=== PATIENT | male | born 1970 | race African-American/Black ===

== ENCOUNTER 2016-08-28 01:57 | Emergency (ER) | payer OTHER ==
--- NOTE | 2016-08-28 05:14 | ER Document Report ---
HPI - HPI Patient complains to provider of: Headache and nausea Onset: Yesterday - Midnight Quality of pain: Achy Pain Level: 4 Context: 45-year-old male states he had a generalized headache and nausea that started at midnight. Similar to other headaches that he has had in the past. No pain at this time. No dizziness or paresthesia. Associated Symptoms: None Exacerbated by: Denies Relieved by: Denies - ROS ROS below otherwise negative: Yes Systems Reviewed and Negative: Yes All other systems reviewed and negative - DERM Skin Color: Normal Past Medical History - General Information source: Patient - Social History Smoking Status: Current Every Day Smoker Frequency of alcohol use: None Drug Abuse: None Lives with: Family Family History: Reviewed & Not Pertinent - Medical History Medical History: Negative Renal/ Medical History: Denies: Hx Peritoneal Dialysis Surgical Hx: Negative Vertical Provider Document - CONSTITUTIONAL Agree With Documented VS: Yes Exam Limitations: No Limitations General Appearance: No Apparent Distress - INFECTION CONTROL TRAVEL OUTSIDE OF THE [place] IN LAST 30 DAYS: No - HEENT HEENT: Atraumatic, Normal ENT Exam - NECK Neck: Supple - RESPIRATORY Respiratory: Breath Sounds Normal, No Respiratory Distress O2 Sat by Pulse Oximetry: 98 - CARDIOVASCULAR Cardiovascular: Regular Rate, Regular Rhythm - GI/ABDOMEN Gastrointestinal: Abdomen Soft, Abdomen Non-Tender, No Organomegaly - BACK Back: Normal Inspection - MUSCULOSKELETAL/EXTREMETIES Musculoskeletal/Extremeties: MAEW, FROM, Non-Tender - NEURO Level of Consciousness: Awake, Alert, Appropriate Motor/Sensory: No Motor Deficit, No Sensory Deficit - DERM Integumentary: Warm, Dry Course - Vital Signs Vital signs: Temp Pulse Resp BP Pulse Ox 98.6 F 90 18 134/83 H 98 08/28/16 02:06 08/28/16 02:06 08/28/16 02:06 08/28/16 02:06 08/28/16 02:06 Discharge - Discharge Clinical Impression: Nausea Headache Qualifiers: Headache type: unspecified Headache chronicity pattern: unspecified pattern Intractability: not intractable Qualified Code(s): R51 - Headache Condition: Good Disposition: HOME, SELF-CARE Instructions: Headache ([facility]), Nausea or Vomiting, Nonspecific ([facility]) Additional Instructions: see neurologist if recurs to er if worsening symptoms Referrals: YUNIOR CEDILLO MD [ACTIVE STAFF] - Follow up as needed
[2016-08-28 05:48] VITALS: BP 154/78
== END 2016-08-28 05:40 | disposition home or self-care (01) ==
LOC: ER 01:57
DX: R51 Headache (principal); R11.0 Nausea; F17.200 Nicotine dependence, unspecified, uncomplicated
CPT/HCPCS: 99283

== ENCOUNTER 2017-01-12 03:00 | Emergency (ER) | payer MEDICAID, OTHER ==
[2017-01-12 03:26] VITALS: BP 140/84
--- NOTE | 2017-01-12 03:29 | ER Document Report ---
ED General - General Stated Complaint: PSYCH EVAL Time Seen by Provider: 01/12/17 03:26 Mode of Arrival: Ambulatory Information source: Patient Notes: This is a 46-year-old man who reports having a history of schizophrenia who is been off his psychiatric meds because of incarceration. Patient initially presented wanting to get back on his medicines. He does report that he has an appointment in the morning at [facility] services. He would like a referral to primary care physician. The patient denies any hallucinations or delusions. He denies any suicidal ideations or homicidal ideations. TRAVEL OUTSIDE OF THE [place] IN LAST 30 DAYS: No - HPI Onset: Last week Onset/Duration: Gradual Quality of pain: No pain Severity: None Pain Level: Denies Associated symptoms: denies: Chest pain, Fever, Shortness of breath Exacerbated by: Denies Relieved by: Denies Similar symptoms previously: Yes Recently seen / treated by doctor: No - Related Data Allergies/Adverse Reactions: No Known Allergies Allergy (Unverified 01/12/17 03:09) Home Medications: Current Home Medications No Home Medications 01/12/17 [History] Past Medical History - General Information source: Patient - Social History Smoking Status: Never Smoker Cigarette use (# per day): No Chew tobacco use (# tins/day): No Frequency of alcohol use: None Drug Abuse: None Lives with: Alone Family History: Reviewed & Not Pertinent Patient has suicidal ideation: No Patient has homicidal ideation: No - Past Medical History Cardiac Medical History: Reports: None Pulmonary Medical History: Reports: None EENT Medical History: Reports: None Neurological Medical History: Reports: None Endocrine Medical History: Reports: None Renal/ Medical History: Reports: None. Denies: Hx Peritoneal Dialysis Malignancy Medical History: Reports None GI Medical History: Reports: None Musculoskeltal Medical History: Reports None Skin Medical History: Reports None Psychiatric Medical History: Reports: Hx Schizophrenia Traumatic Medical History: Reports: None Infectious Medical History: Reports: None Surgical Hx: Negative Review of Systems - Review of Systems Constitutional: denies: Chills, Fever EENT: No symptoms reported Cardiovascular: No symptoms reported Respiratory: No symptoms reported Gastrointestinal: No symptoms reported Genitourinary: No symptoms reported Male Genitourinary: No symptoms reported Musculoskeletal: No symptoms reported Skin: No symptoms reported Hematologic/Lymphatic: No symptoms reported Neurological/Psychological: See HPI Physical Exam - Vital signs Vitals: Pulse Resp BP Pulse Ox 78 18 140/84 H 98 01/12/17 03:11 01/12/17 03:11 01/12/17 03:11 01/12/17 03:11 Notes: Physical exam: GENERAL: 46-year-old man, no acute distress. HEAD: Atraumatic, normocephalic. EYES: Pupils equal round and reactive to light, extraocular movements intact, sclera anicteric, conjunctiva are normal. ENT: TMs normal, nares patent, oropharynx clear without exudates. Moist mucous membranes. NECK: Normal range of motion, supple without obvious mass or JVD. LUNGS: Breath sounds clear to auscultation bilaterally and equal. No wheezes rales or rhonchi. HEART: Regular rate and rhythm without murmurs, rubs or gallops. ABDOMEN: Soft, normoactive bowel sounds. No tenderness to palpation. No guarding, no rebound. No masses appreciated. EXTREMITIES: Normal range of motion, no pitting or edema. No clubbing or cyanosis. NEUROLOGICAL: Cranial nerves II through XII grossly intact. Normal speech, moving all extremities. PSYCH: Denies any hallucinations, denies suicidal ideations, denies homicidal ideations. He is alert and conversant. The patient does appear somewhat emotionally labile, but is non-threatening during my interaction. SKIN: Warm, Dry, normal turgor, no rashes or lesions noted. Course - Vital Signs Vital signs: Temp Pulse Resp BP Pulse Ox 78 18 140/84 H 98 01/12/17 03:11 01/12/17 03:11 01/12/17 03:11 01/12/17 03:11 Discharge - Discharge Clinical Impression: Schizophrenia Condition: Stable Disposition: HOME, SELF-CARE Additional Instructions: Recommendations: 1: Follow-up with the primary care physician: Primary Care Doctor's affiliated with [facility], [facility]: If you do not have a primary care doctor or you are unable to get an apointment during that time, you can try one of the doctor's below. These are internal medicine doctor's that have admitting priveledges to the hospital ( they will see you both in the office as well as in this hospital if you are ever hospitalized here). Dr. Mes[facility] [address], [place] [address] [phone] Dr Royal Address: [address] , [place] [address] Dr Bustos Address: [address] , [place] [address] 2: Follow-up with [facility] [address], [place] Outpatient services: [phone] [place] Office: [phone] Accepts self pay He has a number for other psychiatric facilities if you cannot get into [place]: [facility] Dr Dougie Camarena [phone] [facility] [address] [place], [place] [phone] Accepts self pay [facility] [address] [facility] [place], [place] Crisis Response: [phone] Outpatient services: [phone] Accepts self pay [facility] [address] [place], [place] [phone] [facility] [address] [place], [place] [phone] [place] [facility] [address], [place] Accepts self pay
== END 2017-01-12 04:00 | disposition home or self-care (01) ==
LOC: ER 03:00
DX: F20.9 Schizophrenia, unspecified (principal)
CPT/HCPCS: 99284

== ENCOUNTER 2017-01-19 01:42 | Emergency (ER) | payer MEDICAID, OTHER ==
[2017-01-19] MEDS ORDERED: ACETAMINOPHEN 325 MG TABLET PO ONE (04:44)
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
[2017-01-19 05:40] LABS: ABSOLUTE EOSINOPHILS # (AUTO) 0.1 10^3/uL (0.0-0.6); ABSOLUTE LYMPHOCYTES (AUTO) 1.5 10^3/uL (0.5-4.7); ABSOLUTE MONOCYTES (AUTO) 0.6 10^3/uL (0.1-1.4); ABSOLUTE NEUT (AUTO) 3.8 10^3/uL (1.7-8.2); BASOPHILS % (AUTO) 0.8 % (0-2); EOSINOPHILS % (AUTO) 1.3 % (0-6); HEMATOCRIT 42.4 % (37.9-51.0); HEMOGLOBIN 14.7 g/dL (13.5-17.0); HGB HCT DIFFERENCE 1.7; LYMPHOCYTES % (AUTO) 25.4 % (13-45); MEAN CORPUSCULAR HGB CONC 34.8 g/dL (32.0-36.0); MEAN CORPUSCULAR VOLUME 92 fl (80-97); MONOCYTES % (AUTO) 9.2 % (3-13); RED BLOOD COUNT 4.61 10^6/uL (4.35-5.55); RED CELL DISTRIBUTION WIDTH 14.6 % (11.5-14.0); SEGMENTED NEUTROPHILS % (AUTO) 63.3 % (42-78)
[2017-01-19 05:46] LABS: APPEARANCE,URINE CLEAR; BILIRUBIN,URINE NEGATIVE (NEGATIVE); GLUCOSE, URINE NEGATIVE (NEGATIVE); KETONES,URINE NEGATIVE (NEGATIVE); LEUKOCYTE ESTERASE,URINE NEGATIVE (NEGATIVE); NITRITE,URINE NEGATIVE (NEGATIVE); PROTEIN,URINE NEGATIVE (NEGATIVE); URINE SPECIFIC GRAVITY 1.002; UROBILINOGEN,URINE NEGATIVE mg/dL (<2.0)
[2017-01-19 05:55] LABS: ALANINE AMINOTRANSFERASE 28 U/L (21-72); ALKALINE PHOSPHATASE 67 U/L (38-126); ANION GAP 10 (5-19); ASPARTATE AMINO TRANSFERASE 19 U/L (17-59); BILIRUBIN,DIRECT 0.4 mg/dL (0.0-0.4); BILIRUBIN,TOTAL 0.9 mg/dL (0.2-1.3); BLOOD UREA NITROGEN 7 mg/dL (7-20); CALCIUM 9.4 mg/dL (8.4-10.2); CARBON DIOXIDE 28 mmol/L (22-30); CHLORIDE 103 mmol/L (98-107); CREATININE RESULT 0.74 mg/dL (0.52-1.25); GLUCOSE 80 mg/dL (75-110); POTASSIUM 3.9 mmol/L (3.6-5.0); SODIUM 141.4 mmol/L (137-145); TOTAL PROTEIN 7.4 g/dL (6.3-8.2)
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
[2017-01-19 05:58] LABS: ALCOHOL < 10 mg/dL (NONE DETECTED)
[2017-01-19 06:00] LABS: URINE BARBITURATES SCREEN NEGATIVE; URINE METHADONE SCREEN NEGATIVE; URINE OPIATES LOW NEGATIVE; URINE PHENCYCLIDINE SCREEN NEGATIVE
--- NOTE | 2017-01-19 09:21 | EKG REPORT ---
SEVERITY:- OTHERWISE NORMAL ECG - SINUS RHYTHM BORDERLINE RIGHT AXIS DEVIATION : Confirmed by: Salima Maldonado MD 19-Jan-2017 09:20:30
--- NOTE | 2017-01-19 09:21 | ER Document Report ---
Doctor's Note Notes: 01/19/17 09:19 46-year-old male who presents secondary to some mild non-radiating headaches without fevers or neck stiffness with some nasal congestion and a sore throat as well as pain to his left thumb. Patient also stated that he has been out of his psychiatric medications recently. He denies any auditory or visual hallucinations. He denies any suicidal homicidal ideations. Labs showing positive for cocaine. Vital signs stable. Patient's mood is calm and congruent. Patient has no complaints at this moment. Awaiting psychiatric evaluation. X-ray shows no acute abnormalities of the thumb. Anticipate psychiatric evaluation, possibly medication adjustment/refills, outpatient services provided, and discharge.
[2017-01-19] MEDS ORDERED: OLANZAPINE 5 MG TAB.RAPDIS PO ONE (11:33)
[2017-01-19] MEDS ORDERED: BENZTROPINE MESYLATE 1 MG TABLET PO ONE (11:33)
--- NOTE | 2017-01-19 11:40 | ER Document Report ---
ED Psych Disorder / Suicide - General Information source: Patient, Relative, [facility] Records TRAVEL OUTSIDE OF THE [place] IN LAST 30 DAYS: No - HPI Patient complains to provider of: Other Onset: Other Onset was: Gradual Suicide Risk Factors: Lack of social support, Male, Schizophrenia, Substance abuse, Other - wants to harm others, denies anyone specific, just states he is angry at "the system" Situational problems related to: Legal problems - custodial x 7 years, Parent - states mother is in senior care, Work - cannot find work, but also states he receives disability for schizophrenia, Other - "I need my food stamps" Normal mood: No Associated symptoms: Anxious, Irritable, Labile Similar symptoms previously: Yes Recently seen / treated by doctor: Yes - [facility] <GAMALIEL SALINAS - Last Filed: 01/19/17 16:51> <GURWINDER AVINA - Last Filed: 01/19/17 17:17> - General Chief Complaint: Headache Stated Complaint: HEADACHE Time Seen by Provider: 01/19/17 04:11 - HPI Notes: Patient is a 46-year-old male who presented to [facility] ER overnight via his scooter with a myriad of complaints to include headache, nausea, needing referral for primary care, needing food stamps and also complaining of not having his psychiatric medications. Patient this morning states he was at and after [employer] where he smoked and drank. Patient reports he is diagnosed with schizophrenia for which he reports he receives disability. Patient states his disability was recently increased. Patient reports he feels like he is getting the run around and is constantly being asked to provide items for food stamps (just one example ) which he states he is eligible. Patient reports he was previously on medications while in custodial 7 years. He states when he got out of custodial he has tried to follow-up with [facility] services but they want him to attend all these different groups. Patient states the groups are pointless and do not help. Patient states he does not want to talk he needs his meds. Patient later acknowledges he did see the doctor who prescribed the medications, but patient reports he cannot afford to pay for them. Patient continues to discuss that he needs his food stamps, and that he is here because he promised his mother he would. Patient states he has a small child at home and "no one cares about the black man." Patient reports he feels as though he gets the runaround from the system and is constantly having to provide paperwork and documentation in meets all of the request and still is not receiving help. Patient denies feeling suicidal. Patient reports there are individuals he wants to harm but will not disclose them to this clinician because he knows I will have to report this. Patient reports he was in custodial for "powder cocaine." Patient states he chooses to medicate himself with occasionally alcohol and marijuana. Note patient was positive for cocaine only. GirlfriendMary states: she is not aware of patient threatening himself or anyone else. She states she does not think he would harm anyone and has never acted in a way that would suggest this. She states she will check in with the patient later today, and the following days. Person to contact, Jen Nogueira : has been temporarily disconnected. Patient is alert and oriented. Mood is irritable and labile with congruent affect. Patient denies suicidal ideations. Patient endorses wanting to harm others. Patient refuses to report who these individuals are. Patient denies auditory visual hallucinations; delusions not noted. Thought processes were disorganized. Conversational speech was labile for rate, tone, and prosody. Intellectual abilities were estimated to be under the influence. Attention and focus are poor. Insight, judgment, impulse control are poor. 298.9 (F29) Unspecified Schizophrenia or Other Psychotic Disorder, per history Unspecified Cocaine Use Disorder @1638: Conducted reevaluation of patient. Patient did receive a dose of Zyprexa while here in the department. Patient is now alert and oriented. Patient is calm. Patient denies wanting to harm anybody. Patient states he just gets frustrated with his situation and feels he is doing his best to get on his feet. Patient states he will follow-up with [employer] services tomorrow morning. Patient continues to deny wanting to harm anybody. Patient states right now he feels calmer and would like to go home. Patient is psychiatrically cleared for discharge. Patient is recommended to follow-up with [facility] services Friday morning and request a medication management appointment. Patient is strongly encouraged to continue to attend the group meetings. Patient reports he is agreeable to this and understands that they are required per that provider, to be able to receive medication management. Patient provided a list of additional resources to include integrated family services who are not known to require group sessions in order to receive medication management. I consulted with Dr. Camarena in regards to the care and management of this patient. (GAMALIEL SALINAS) - Related Data Allergies/Adverse Reactions: No Known Allergies Allergy (Verified 01/19/17 02:01) Past Medical History - General Information source: Patient, [facility] Records - Social History Smoking Status: Current Every Day Smoker Frequency of alcohol use: None Drug Abuse: Marijuana Family History: Reviewed & Not Pertinent Patient has suicidal ideation: No Patient has homicidal ideation: Yes - Passive this am; afternoon patient denies Renal/ Medical History: Denies: Hx Peritoneal Dialysis Psychiatric Medical History: Reports: Hx Schizophrenia <GAMALIEL SALINAS - Last Filed: 01/19/17 16:51> - Vital signs Vitals: Temp Pulse Resp BP Pulse Ox 98.8 F 86 17 137/91 H 97 01/19/17 02:02 01/19/17 02:02 01/19/17 02:02 01/19/17 02:02 01/19/17 02:02 Course - Laboratory Result Diagrams: 01/19/17 05:06 01/19/17 05:06 <GAMALIEL SALINAS - Last Filed: 01/19/17 16:51> - Laboratory Result Diagrams: 01/19/17 05:06 01/19/17 05:06 <GURWINDER AVINA - Last Filed: 01/19/17 17:17> - Vital Signs Vital signs: Temp Pulse Resp BP Pulse Ox 97.9 F 77 17 130/77 H 99 01/19/17 11:01 01/19/17 11:01 01/19/17 07:05 01/19/17 11:01 01/19/17 11:01 - Laboratory Laboratory results interpreted by me: 01/19/17 01/19/17 05:06 05:06 RDW 14.6 H Salicylates < 1.0 L Acetaminophen < 10 L Discharge <GAMALIEL SALINAS - Last Filed: 01/19/17 16:51> <GURWINDER AVINA - Last Filed: 01/19/17 17:17> - Discharge Clinical Impression: Psychiatric complaint, Chronic pain of left knee URI (upper respiratory infection) Qualifiers: URI type: unspecified URI Qualified Code(s): J06.9 - Acute upper respiratory infection, unspecified Thumb contusion Qualifiers: Encounter type: initial encounter Damage to nail status: without damage Laterality: left Qualified Code(s): S60.012A - Contusion of left thumb without damage to nail, initial encounter Condition: Stable Disposition: HOME, SELF-CARE Additional Instructions: Cocaine Abuse Cocaine causes many dangerous medical problems. Problems can occur even with "usual" amounts. Cocaine affects judgement, creating a sense of invulnerability. Cocaine users often make bad decisions that seem "great" at the time. Most cocaine users eventually will be hurt by bad job performance, damaged personal relations, crime, and unsafe sexual practices. Toxic effects of cocaine can include seizures, hallucinations, delusions, high blood pressure, heart damage, or sudden . There's always the risk of a "bad batch." But heart attacks, brain hemorrhages, or cardiac arrest can occur unpredictably even with "normal" use. Injection of cocaine is risky for abscesses, endocarditis (heart infection) , pneumonia, and AIDS. Withdrawal from cocaine often causes anxiety and drug cravings. Some users become paranoid and psychotic. Many treatment programs are available, but you must make the decision to quit. Medication can be prescribed to control the symptoms of cocaine toxicity (beta blockers or benzodiazepines). Withdrawal symptoms may require tranquilizers. Schizophrenia Schizophrenia is a chemical disorder that affects how the brain functions. The exact cause is unknown, but it tends to run in families. It is NOT caused by emotional trauma. Schizophrenia causes disordered thinking, including unusual beliefs and inability to "process" happenings around the patient. Patients with schizophrenia benefit greatly from medicine. These medicines are called antipsychotics. Never stop the medicine without the doctor 's approval. Counselling may help the patient deal with his disease. Schizophrenics require a very ordered environment. Stresses and sudden changes may bring out symptoms. Drugs and alcohol abuse may become problems. Contact the counsellor or crisis line if there are thoughts of suicide or of harming others, or if you become aware of unusual thoughts or beliefs Please follow-up with [facility] on your schedule appointment January 27. Please stop using drugs. Drugs are bad for your health, impair your insight and judgment, and increased irritability. You have been provided a list of resources to assist you to include mobile crisis. I have a Risperdal prescription for the next 7 days until you are able to see a counselor appointment. Please make sure that you take your medications appropriately. Please come back immediately with any return of auditory hallucinations, any thoughts of injuring yourself or others, or any other acute problems. Prescriptions: Benztropine Mesylate [Cogentin 1 mg Tablet] 0.5 mg PO DAILY #8 tablet Risperidone [Risperdal 1 mg Tablet] 1 mg PO DAILY #8 tablet Referrals: [facility] [Provider Group] - 01/20/17
[2017-01-19 17:46] VITALS: BP 124/77
== END 2017-01-19 17:46 | disposition home or self-care (01) ==
LOC: ER 01:42
DX: F20.9 Schizophrenia, unspecified (principal); T43.596A Underdosing of other antipsychotics and neuroleptics, initial encounter; T43.226A Underdosing of selective serotonin reuptake inhibitors, initial encounter; Z91.14 Patient's other noncompliance with medication regimen; Z91.120 Patient's intentional underdosing of medication regimen due to financial hardship; S66.012A Strain of long flexor muscle, fascia and tendon of left thumb at wrist and hand level, initial encounter; W23.0XXA Caught, crushed, jammed, or pinched between moving objects, initial encounter; J02.9 Acute pharyngitis, unspecified; G89.29 Other chronic pain; M25.562 Pain in left knee; S81.002S Unspecified open wound, left knee, sequela; W34.00XS Accidental discharge from unspecified firearms or gun, sequela; H61.20 Impacted cerumen, unspecified ear; R51 Headache; R11.2 Nausea with vomiting, unspecified; R09.81 Nasal congestion; F14.90 Cocaine use, unspecified, uncomplicated; F17.200 Nicotine dependence, unspecified, uncomplicated
CPT/HCPCS: 93005; 99284; 36415; 80307 ×4; 85025; 80053; 81001; 73140; 93010; J3490 ×3

== ENCOUNTER 2017-01-27 23:21 | Emergency (ER) | payer MEDICAID, OTHER ==
--- NOTE | 2017-01-28 01:17 | ER Document Report ---
HPI - HPI Patient complains to provider of: cough, sinus pain, congestion Pain Level: 4 Context: Patient is a 46-year-old male comes emergency department for chief complaint of sinus congestion, cough, and sore throat. He denies fever. He states that his sinus congestion is getting worse and he is getting intermittent headaches. He denies vomiting, shortness of breath, he states he does not smoke. He denies any other symptoms. He denies any other complaints. Past medical history of schizophrenia, he states he is taking his medications. - CARDIOVASCULAR Cardiovascular: DENIES: Chest pain - DERM Skin Color: Normal Past Medical History - General Information source: Patient - Social History Smoking Status: Never Smoker Drug Abuse: None Lives with: Alone Family History: Reviewed & Not Pertinent Patient has suicidal ideation: No Patient has homicidal ideation: No Renal/ Medical History: Denies: Hx Peritoneal Dialysis Psychiatric Medical History: Reports: Hx Schizophrenia Surgical Hx: Negative - Immunizations Immunizations up to date: Yes Hx Diphtheria, Pertussis, Tetanus Vaccination: Yes Vertical Provider Document - CONSTITUTIONAL General Appearance: WD/WN, No Apparent Distress - INFECTION CONTROL TRAVEL OUTSIDE OF THE [place] IN LAST 30 DAYS: No - HEENT HEENT: Atraumatic, Normocephalic. negative: Normal ENT Exam - Patient with sinus congestion, mild pharyngeal erythema, complaints of pain with palpation over both maxillary sinuses, nontender frontal sinuses, normal neck, normal ENT exam otherwise. - NECK Neck: Normal Inspection - RESPIRATORY Respiratory: Breath Sounds Normal, No Respiratory Distress, Other - Very mild occasional cough, clear lungs, no wheezing, no rales, no rhonchi O2 Sat by Pulse Oximetry: 100 - CARDIOVASCULAR Cardiovascular: Regular Rate, Regular Rhythm - GI/ABDOMEN Gastrointestinal: Abdomen Soft, Abdomen Non-Tender - MUSCULOSKELETAL/EXTREMETIES Musculoskeletal/Extremeties: MAEW, FROM, Non-Tender Course - Re-evaluation Re-evalutation: Patient with evidence of viral upper respiratory infection and sinusitis. Low suspicion of pneumonia. No fever. No respiratory symptoms on exam. Patient denying any psychiatric concerns, states he is compliant with his medications and he just wants to be treated for the illness. Discussed follow-up, discussed return precautions including difficulty breathing, patient states understanding and agreement. - Vital Signs Vital signs: Temp Pulse Resp BP Pulse Ox 98.3 F 79 20 137/83 H 100 01/27/17 23:29 01/27/17 23:29 01/27/17 23:29 01/27/17 23:29 01/27/17 23:29 Discharge - Discharge Clinical Impression: Sinus pain, Congestion of paranasal sinus, Sore throat, Cough Condition: Stable Disposition: HOME, SELF-CARE Additional Instructions: Your examination is consistent with a viral upper respiratory infection and also developing sinus infection. Recommendation is to take the Flonase nasal spray, use the Tessalon if needed for cough, and take the antibiotic for your sinus infection as prescribed. Rest, drink plenty of fluids. Follow-up with primary care. Return to emergency department if you worsen including developing fever, difficulty breathing, or any other concerning symptoms. Prescriptions: Benzonatate [Tessalon Perles 100 mg Capsule] 100 mg PO Q8HP PRN #20 capsule PRN Reason: Amoxicillin Trihydrate [Amoxil 875 mg Tablet] 1 tab PO BID #20 tablet Fluticasone Propionate [Flonase Nasal [place] 50 Mcg/[place] 16 gm] 2 sprays NASL Q12 #1 inhaler
[2017-01-28 01:36] VITALS: BP 137/84
== END 2017-01-28 01:36 | disposition home or self-care (01) ==
LOC: ER 23:21
DX: J02.9 Acute pharyngitis, unspecified (principal); J32.9 Chronic sinusitis, unspecified; B97.89 Other viral agents as the cause of diseases classified elsewhere; R09.81 Nasal congestion; R05 Cough; R51 Headache; F20.9 Schizophrenia, unspecified; Z79.899 Other long term (current) drug therapy
CPT/HCPCS: 99283

== ENCOUNTER 2017-06-08 20:10 | Emergency (ER) | payer MEDICAID, OTHER ==
[2017-06-08 21:13] VITALS: BP 135/83
[2017-06-08] MEDS ORDERED: ACETAMINOPHEN 325 MG TABLET PO ONE (22:54)
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
== END 2017-06-08 23:08 | disposition home or self-care (01) ==
LOC: ER 20:10
DX: S09.90XA Unspecified injury of head, initial encounter (principal); F17.210 Nicotine dependence, cigarettes, uncomplicated; Y04.0XXA Assault by unarmed brawl or fight, initial encounter; Y92.512 Supermarket, store or market as the place of occurrence of the external cause; I10 Essential (primary) hypertension
CPT/HCPCS: 99283; J3490

== ENCOUNTER 2017-08-30 23:50 | Emergency (ER) | payer MEDICAID ==
[2017-08-31] VITALS: BP 127/113
== END 2017-08-31 02:04 | disposition left against medical advice (07) ==
LOC: ER 23:50
DX: Z53.21 Procedure and treatment not carried out due to patient leaving prior to being seen by health care provider (principal)

== ENCOUNTER 2017-09-06 05:49 | Emergency (ER) | payer MEDICAID | END 2017-09-06 06:00 | disposition left against medical advice (07) | LOC: ER 05:49 | DX: Z53.21 Procedure and treatment not carried out due to patient leaving prior to being seen by health care provider (principal) ==

== ENCOUNTER 2017-09-06 06:41 | Emergency (ER) | payer MEDICAID ==
[2017-09-06 06:57] VITALS: BP 140/80
== END 2017-09-06 07:00 | disposition left against medical advice (07) ==
LOC: ER 06:41
DX: Z53.21 Procedure and treatment not carried out due to patient leaving prior to being seen by health care provider (principal)

== ENCOUNTER 2017-09-10 15:52 | Emergency (ER) | payer MEDICAID ==
[2017-09-10] MEDS ORDERED: IBUPROFEN 800 MG TABLET PO ONE (16:39)
--- NOTE | 2017-09-10 16:39 | ER Document Report ---
ED Extremity Problem, Lower - General Chief Complaint: Foot Pain Stated Complaint: RIGHT FOOT PAIN Time Seen by Provider: 09/10/17 16:32 Mode of Arrival: Ambulatory Information source: Patient Notes: 46-year-old male presents to the ED for complaint of right foot pain after he stubbed his great toe on a cement block earlier today. He denies having any medication or treatment before coming to the emergency room. He is alert and oriented, pupils equal and react to light, speaking in full sentences, respirations regular and unlabored, and patient is able to walk with a steady gait but does complain of pain while ambulation. TRAVEL OUTSIDE OF THE [place] IN LAST 30 DAYS: No - HPI Patient complains to provider of: Injury, Pain, Swelling Location: Great Toe Occurred: This morning Where: Outdoors Onset/Duration: Persistent Quality of pain: Achy, Throbbing Severity: Severe Pain Level: 5 Context: Stubbed - Right great toe Recent injury: Yes Associated symptoms: Painful ambulation Exacerbated by: Movement, Walking Relieved by: Elevation, Ice - Related Data Allergies/Adverse Reactions: No Known Allergies Allergy (Verified 09/10/17 15:56) Past Medical History - General Information source: Patient - Social History Smoking Status: Current Every Day Smoker Cigarette use (# per day): Yes - Pack per day Chew tobacco use (# tins/day): No Smoking Education Provided: Yes - Minutes Frequency of alcohol use: Rare Drug Abuse: Marijuana Occupation: Maintenance Lives with: Alone Family History: Reviewed & Not Pertinent Patient has suicidal ideation: No Patient has homicidal ideation: No - Past Medical History Cardiac Medical History: Reports: None Pulmonary Medical History: Reports: None EENT Medical History: Reports: None Neurological Medical History: Reports: Other - Head injury Endocrine Medical History: Reports: None Renal/ Medical History: Reports: None Malignancy Medical History: Reports None GI Medical History: Reports: None Musculoskeltal Medical History: Reports None Skin Medical History: Reports None Psychiatric Medical History: Reports: Hx Schizophrenia Traumatic Medical History: Reports: None Infectious Medical History: Reports: None Surgical Hx: Negative Past Surgical History: Reports: None - Immunizations Immunizations up to date: Yes Hx Diphtheria, Pertussis, Tetanus Vaccination: Yes Review of Systems - Review of Systems Constitutional: No symptoms reported EENT: No symptoms reported Cardiovascular: No symptoms reported Respiratory: No symptoms reported Gastrointestinal: No symptoms reported Genitourinary: No symptoms reported Male Genitourinary: No symptoms reported Musculoskeletal: Other - Right great toe pain Skin: No symptoms reported Hematologic/Lymphatic: No symptoms reported Neurological/Psychological: No symptoms reported Physical Exam - Vital signs Vitals: Temp Pulse Resp BP Pulse Ox 98.1 F 88 16 130/89 H 99 09/10/17 16:07 09/10/17 16:07 09/10/17 16:07 09/10/17 16:07 09/10/17 16:07 Interpretation: Normal - General General appearance: Appears well, Alert - HEENT Head: Normocephalic, Atraumatic Eyes: Normal Pupils: PERRL - Respiratory Respiratory status: No respiratory distress Chest status: Nontender Breath sounds: Normal Chest palpation: Normal - Cardiovascular Rhythm: Regular Heart sounds: Normal auscultation Murmur: No - Abdominal Inspection: Normal Distension: No distension Bowel sounds: Normal Tenderness: Nontender Organomegaly: No organomegaly - Back Back: Normal, Nontender - Extremities General upper extremity: Normal inspection, Nontender, Normal color, Normal ROM , Normal temperature General lower extremity: Normal color, Normal ROM, Normal temperature, Normal weight bearing. No: Matthew's sign Foot: Tender, Ecchymosis - Right great toe, No evidence of FB. No: Abrasion, Deformity, Edema, Instability, Laceration, Metatarsal compress. pain, Nail injury, Navicular tenderness, Puncture wound, Tender 5th metatarsal, Unable to bear weight - He with ambulation - Neurological Neuro grossly intact: Yes Cognition: Normal Orientation: AAOx4 Sylvia Coma Scale Eye Opening: Spontaneous Sylvia Coma Scale Verbal: Oriented Sylvia Coma Scale Motor: Obeys Commands Sylvia Coma Scale Total: 15 Speech: Normal Motor strength normal: LUE, RUE, LLE, RLE Sensory: Normal - Psychological Associated symptoms: Normal affect, Normal mood - Skin Skin Temperature: Warm Skin Moisture: Dry Skin Color: Normal Course - Re-evaluation Re-evalutation: 09/10/17 18:31 X-rays discussed with patient and written report of x-ray given to patient. Patient refused any type of splint or crutches. He states he can put his shoe back on. Patient will be discharged home to follow-up with orthopedics or podiatry. - Vital Signs Vital signs: Temp Pulse Resp BP Pulse Ox 98.5 F 75 14 145/88 H 75 L 09/10/17 17:03 09/10/17 17:03 09/10/17 17:03 09/10/17 17:03 09/10/17 17:03 - Diagnostic Test Radiology reviewed: Image reviewed, Reports reviewed Discharge - Discharge Clinical Impression: Contusion of right foot including toes Qualifiers: Encounter type: initial encounter Qualified Code(s): S90.31XA - Contusion of right foot, initial encounter Condition: Stable Disposition: HOME, SELF-CARE Additional Instructions: CONTUSION: Your injury has resulted in a contusion -- a crushing of the deep tissues. No injury to important structures was detected during the physician's exam. Contusions vary in the amount of pain they cause, and in the length of time required for healing. Typically, the area will become bruised, and will remain painful to touch for two or three weeks. However, most patients are back to working and playing within a few days. After the initial period of rest and cold-packs, your symptoms (together with the doctor's recommendations) will determine how rapidly you can get back to full activity. Usually this means "do what feels okay, but don't do things that hurt." If re-examination was recommended, it's important to follow up as instructed. Call the doctor or return any time if pain increases, if swelling becomes severe, if you develop numbness or weakness in an injured extremity, or if any other alarming symptoms occur. USE OF TYLENOL (ACETAMINOPHEN): Acetaminophen may be taken for pain relief or fever control. It's much safer than aspirin, offering a wider range of "safe" dosages. It is safe during . Some brand names are Tylenol, Panadol, Datril, Anacin 3, Tempra, and Liquiprin. Acetaminophen can be repeated every four hours. The following are maximum recommended dosages: WEIGHT Dose Drops Elixir Chewable( 80mg) (LBS.) drprs=droppers tsp=teaspoon 6 40 mg 0.4 ml (1/2) 6-11 80 mg 0.8 ml (full) tsp 1 tab 12-16 120 mg 1 1/2 drprs 3/4 tsp 1 1/2 tabs 17-23 160 mg 2 drprs 1 tsp 2 tabs 24-30 240 mg 3 drprs 1 1/2 tsp 3 tabs 30-35 320 mg 2 tsp 4 tabs 36-41 360 mg 2 1/4 tsp 4 1/2 tabs 42-47 400 mg 2 1/2 tsp 5 tabs 48-53 480 mg 3 tsp 6 tabs 54-59 520 mg 3 1/4 tsp 6 1/2 tabs 60-64 560 mg 3 1/2 tsp 7 tabs 65-70 600 mg 3 3/4 tsp 7 1/2 tabs 71-76 640 mg 4 tsp 8 tabs 77-82 720 mg 4 1/2 tsp 9 tabs 83-88 800 mg 5 tsp 10 tabs >89 pounds or adults 650 mg to 900 mg Acetaminophen can be repeated every four hours. Maximum dose not to exceed 4000 mg a day. These maximum recommended dosages are slightly higher than the dosages written on the product container, but these dosages are very safe and below the toxic dosage for acetaminophen. ICE & ELEVATION: Apply ice packs frequently against the painful area. Many different schedules are recommended, such as "20 minutes on, 20 minutes off" or "one hour ice, two hours rest." If you need to work, you may need to go longer between ice treatments. You should plan to have the area ice packed AT LEAST one- fourth of the time. The ice should be applied over the wrap, tape, or splint, or over a layer of cloth -- not directly against the skin. Some ice bags have a built-in cloth and can be put directly on the skin. Your injured part should be elevated as much as possible over the next 48 hours. Try to keep the injury above the level of the heart. Avoid use of the injured area. Elevation and rest will decrease the swelling. USE OF [id number] IBUPROFEN: Ibuprofen (Advil, Nuprin, Medipren, Motrin IB) is a medication for fever and pain control. In addition, it has anti- inflammatory effects which may be beneficial, especially in the treatment of injuries. It's best to take ibuprofen with food. Persons with ulcer disease or allergy to aspirin should notify their physician of this before taking ibuprofen. Ibuprofen can be given every four to six hours, for a total of four doses daily. Age Pain or fever dose Antiinflammatory dose 6-8 yr 200 mg (1 tab) 200 mg (1 tab) 9-11 yr 200 mg (1 tab) 200-400 mg (1-2 tab) 11-14 yr 200-400 mg (1-2 tab) 400 mg (2 tab) 15-adult 400 mg (2 tab) 600 mg (3 tab) FOLLOW-UP CARE: If you have been referred to a physician for follow-up care, call the physician s office for an appointment as you were instructed or within the next two days. If you experience worsening or a significant change in your symptoms, notify the physician immediately or return to the Emergency Department at any time for re-evaluation. Forms: Elevated Blood Pressure, Smoking Cessation Education, Return to Work Referrals: DANIEL ESTEVEZ DPM [ACTIVE STAFF] - Follow up as needed
--- NOTE | 2017-09-10 16:48 | RADIOLOGY REPORT (SQ) ---
EXAM DESCRIPTION: FOOT RIGHT COMPLETE COMPLETED DATE/TIME: 09/10/2017 4:36 pm REASON FOR STUDY: pain, injury COMPARISON: None. NUMBER OF VIEWS: Three views. TECHNIQUE: AP, lateral and oblique radiographic images acquired of the right foot. LIMITATIONS: None. FINDINGS: MINERALIZATION: Normal. BONES: No acute fracture or dislocation. No worrisome bone lesions. JOINTS: No effusions. SOFT TISSUES: No soft tissue swelling. No foreign body. OTHER: No other significant finding. IMPRESSION: NEGATIVE STUDY OF THE RIGHT FOOT. NO RADIOGRAPHIC EVIDENCE OF ACUTE INJURY. TECHNICAL DOCUMENTATION: JOB ID: [id number] [employer]- All Rights Reserved Reading location - IP/workstation name: [email or web address]
[2017-09-10 17:04] VITALS: BP 145/88
== END 2017-09-10 17:03 | disposition home or self-care (01) ==
LOC: ER 15:52
DX: S90.111A Contusion of right great toe without damage to nail, initial encounter (principal); W22.8XXA Striking against or struck by other objects, initial encounter; F17.210 Nicotine dependence, cigarettes, uncomplicated; Z71.6 Tobacco abuse counseling
CPT/HCPCS: 99283; 73630; J3490

== ENCOUNTER 2017-09-15 13:37 | Emergency (ER) | payer MEDICAID ==
[2017-09-15 13:42] VITALS: BP 137/71
[2017-09-15] MEDS ORDERED: KETOROLAC TROMETHAMINE INJ/PF 30 MG/1 ML SDV IM ONE (14:01)
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
== END 2017-09-15 14:25 | disposition home or self-care (01) ==
LOC: ER 13:37
DX: W22.8XXA Striking against or struck by other objects, initial encounter (principal); F17.200 Nicotine dependence, unspecified, uncomplicated
CPT/HCPCS: 99283

== ENCOUNTER 2017-10-17 02:56 | Emergency (ER) | payer MEDICAID, OTHER ==
[2017-10-17 03:26] VITALS: BP 120/70
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
== END 2017-10-17 05:49 | disposition home or self-care (01) ==
LOC: ER 02:56
DX: R07.81 Pleurodynia (principal); R51 Headache; Y04.0XXA Assault by unarmed brawl or fight, initial encounter; F17.200 Nicotine dependence, unspecified, uncomplicated
CPT/HCPCS: 70486; 99284

== ENCOUNTER 2017-11-04 23:39 | Emergency (ER) | payer MEDICAID ==
[2017-11-05] MEDS ORDERED: ACETAMINOPHEN 325 MG TABLET PO ONE (01:59)
--- NOTE | 2017-11-05 02:03 | ER Document Report ---
ED General - General Chief Complaint: Headache, R foot pain, nosebleed, insect bites Stated Complaint: HEADACHE Time Seen by Provider: 11/05/17 01:54 Mode of Arrival: Ambulatory TRAVEL OUTSIDE OF THE [place] IN LAST 30 DAYS: No - HPI Patient complains to provider of: Nosebleed Onset: Other - Patient has had intermittent nosebleeds which he believes are result of his previous cocaine abuse in the past. Notes that intermittently he does have nosebleeding and sometimes stops on its own has not taken anything for it he does also note that he has been off medications because he was incarcerated for 8 years. During that time he was being treated for mental health problems including schizophrenia. He denies any thoughts of harming himself any hallucinations or any desire to harm anyone else. He limits low- grade headaches which he has not taken any pain. Denies any illicit drug use denies any alcohol use denies any other substance abuse. Nothing is seen to make his symptoms any better nothing makes them any worse. - Related Data Allergies/Adverse Reactions: No Known Allergies Allergy (Verified 09/15/17 13:43) Past Medical History - General Information source: Patient - Social History Smoking Status: Current Every Day Smoker Cigarette use (# per day): Yes Chew tobacco use (# tins/day): No Smoking Education Provided: Yes Frequency of alcohol use: None Drug Abuse: None Family History: Reviewed & Not Pertinent Patient has suicidal ideation: No Patient has homicidal ideation: No - Medical History Medical History: Other - Schizophrenia Renal/ Medical History: Denies: Hx Peritoneal Dialysis Psychiatric Medical History: Reports: Hx Schizophrenia - Immunizations Immunizations up to date: Yes Hx Diphtheria, Pertussis, Tetanus Vaccination: Yes Review of Systems - Review of Systems -: Yes All other systems reviewed and negative Physical Exam - Vital signs Vitals: Temp Pulse Resp BP Pulse Ox 99.1 F 111 H 18 138/76 H 99 11/04/17 23:46 11/04/17 23:46 11/04/17 23:46 11/04/17 23:46 11/04/17 23:46 - General General appearance: Appears well - HEENT Head: Normocephalic Eyes: Normal Conjunctiva: Normal Nasal: Bloody discharge - Respiratory Respiratory status: No respiratory distress Chest status: Nontender Breath sounds: Normal Chest palpation: Normal - Cardiovascular Rhythm: Regular Heart sounds: Normal auscultation Murmur: No - Abdominal Inspection: Normal Distension: No distension Bowel sounds: Normal - Back Back: Normal - Extremities General upper extremity: Normal inspection General lower extremity: Normal inspection - Neurological Neuro grossly intact: Yes Cognition: Normal - Psychological Associated symptoms: Normal affect, Normal mood, Anxious - Skin Skin Temperature: Warm Course - Re-evaluation Re-evalutation: 11/05/17 03:28 46-year-old man who presents for intermittentlow-grade headache. He does have a history of schizophrenia with some poor attention. He is not following up very well. We will administer Tylenol will administer Afrin. Spoke with the patient he denies any psychiatric component at this time, states he just needs some for his headache and his nose. We will encourage him to follow-up for his mental health evaluation. Have given this patient prescriptions as described above. Will discharge with return precautions encouraged follow-up as previously stated. - Vital Signs Vital signs: Temp Pulse Resp BP Pulse Ox 99.1 F 111 H 18 138/76 H 99 11/04/17 23:46 11/04/17 23:46 11/04/17 23:46 11/04/17 23:46 11/04/17 23:46 Discharge - Discharge Clinical Impression: Anxious mood, Bleeding nose Condition: Stable Disposition: HOME, SELF-CARE Additional Instructions: He was seen today for your nosebleeds as well as your difficulty with mood on occasion. He had an evaluation including a physical exam, you should use the nose spray prescribed to use as needed for nosebleeds. Use the Tylenol as needed for headache and use the Seroquel as needed for sleep. Follow the instructions below and see a physician at your earliest convenience. 1: Follow-up with the primary care physician: Primary Care Doctor's affiliated with [facility]: If you do not have a primary care doctor or you are unable to get an apointment during that time, you can try one of the doctor's below. These are internal medicine doctor's that have admitting priveledges to the hospital ( they will see you both in the office as well as in this hospital if you are ever hospitalized here). Dr. Bonita Cespedes [address], [place] [address] [phone] Dr Royal Address: [address] [place] [address] [place] [address] Dr Bustos Address: [address] , [place] [address] 2: Follow-up with [facility] [address], [place] Outpatient services: [phone] José Luis Mo Office: [phone] Accepts self pay He has a number for other psychiatric facilities if you cannot get into [facility]: [facility] Dr Dougie Camarena [phone] [facility] [address] [place], [place] [phone] Accepts self pay [facility] [address] [facility] [place], [place] Crisis Response: [phone] Outpatient services: [phone] Accepts self pay [facility] [address] [place], [place] [phone] [facility] [address] [place], [place] [phone] [facility] [address], [place] Accepts self pay Prescriptions: Quetiapine Fumarate [Seroquel 25 mg Tablet] 25 mg PO QHS #10 tablet Acetaminophen [Tylenol 325 mg Tablet] 650 mg PO Q6HP PRN #60 tablet PRN Reason: Oxymetazoline HCl [Afrin 0.05% Nasal [place] 15 ml Bottle] 30 spray NAREB TID PRN #1 bottle PRN Reason: nose bleed
[2017-11-05 02:17] VITALS: BP 104/65
== END 2017-11-05 02:30 | disposition home or self-care (01) ==
LOC: ER 23:39
DX: F41.9 Anxiety disorder, unspecified (principal); R04.0 Epistaxis; R51 Headache; F20.9 Schizophrenia, unspecified; F17.210 Nicotine dependence, cigarettes, uncomplicated
CPT/HCPCS: 99283; J3490

== ENCOUNTER 2018-03-06 00:04 | Emergency (ER) | payer MEDICAID, OTHER ==
--- NOTE | 2018-03-06 00:56 | ER Document Report ---
HPI - HPI Patient complains to provider of: Patient states he has had a sore throat runny nose and leg cramps for 20-2 Time Seen by Provider: 03/06/18 00:45 Onset: Just prior to arrival Onset/Duration: Sudden Quality of pain: Cramping, Other Severity: Moderate - Sore throat Pain Level: 4 Associated Symptoms: Sore throat, Other - Leg cramps for 25 minutes Exacerbated by: Denies Relieved by: Denies Similar symptoms previously: Yes Recently seen / treated by doctor: No - CONSTITUTIONAL Constitutional: DENIES: Fever, Chills - EENT EENT: REPORTS: Sore Throat, Nasal Drainage-Clear - NEURO Neurology: DENIES: Headache, Weakness, Vision blurred, Dizzinesss / Vertigo - CARDIOVASCULAR Cardiovascular: DENIES: Chest pain - RESPIRATORY Respiratory: DENIES: Trouble Breathing, Coughing - GASTROINTESTINAL Gastrointestinal: DENIES: Abdominal Pain, Nausea, Patient vomiting, Diarrhea, Constipation, Black / Bloody Stools - URINARY Urinary: DENIES: Dysuria, Urgency, Frequency - MUSCULOSKELETAL Musculoskeletal: REPORTS: Extremity pain - Leg cramps - DERM Skin Color: Normal Skin Problems: None Past Medical History - General Information source: Patient - Social History Smoking Status: Current Some Day Smoker Cigarette use (# per day): Yes - 4 cigarettes today Chew tobacco use (# tins/day): No Smoking Education Provided: Yes - 4 min Frequency of alcohol use: None Drug Abuse: None Lives with: Alone Family History: Reviewed & Not Pertinent Patient has suicidal ideation: No Patient has homicidal ideation: No - Past Medical History Cardiac Medical History: Reports: None Renal/ Medical History: Denies: Hx Peritoneal Dialysis Psychiatric Medical History: Reports: Hx Schizophrenia - Immunizations Immunizations up to date: Yes Hx Diphtheria, Pertussis, Tetanus Vaccination: Yes Vertical Provider Document - CONSTITUTIONAL Agree With Documented VS: Yes Exam Limitations: No Limitations General Appearance: WD/WN, No Apparent Distress - INFECTION CONTROL TRAVEL OUTSIDE OF THE [place] IN LAST 30 DAYS: No - HEENT HEENT: Atraumatic, Normocephalic, PERRLA. negative: Normal ENT Exam Notes: Patient has mild nasal swelling minimal drainage, oropharynx clear no tonsillar hypertrophy no exudate. - NECK Neck: Normal Inspection - RESPIRATORY Respiratory: Breath Sounds Normal, No Respiratory Distress, Chest Non-Tender - GI/ABDOMEN Gastrointestinal: Abdomen Soft, Abdomen Non-Tender, No Organomegaly, Normal Bowel Sounds - MUSCULOSKELETAL/EXTREMETIES Musculoskeletal/Extremeties: MAEW, FROM, Non-Tender - NEURO Level of Consciousness: Awake, Alert Motor/Sensory: No Motor Deficit, No Sensory Deficit - DERM Integumentary: Warm, Dry, No Rash Course - Re-evaluation Re-evalutation: 03/06/18 02:[address] peralta and will discharge home with instructions to eat bananas, increase his fluid, and return to the ED immediately for any increase in symptoms. She verbalized understanding and agreement with treatment plan. Patient's pulse was 105, blood pressure 144/99, O2 sat was 99%, his temp was 98.2, and his respirations were 18 at discharge. - Vital Signs Vital signs: Temp Pulse Resp BP Pulse Ox 97.6 F 113 H 18 154/85 H 100 03/06/18 00:20 03/06/18 00:20 03/06/18 00:20 03/06/18 00:20 03/06/18 00:20 Discharge - Discharge Clinical Impression: Viral sore throat, Leg cramps URI (upper respiratory infection) Qualifiers: URI type: unspecified URI Qualified Code(s): J06.9 - Acute upper respiratory infection, unspecified Condition: Stable Disposition: HOME, SELF-CARE Instructions: Family Physicians / Practices Additional Instructions: UPPER RESPIRATORY ILLNESS: You have a viral infection of the respiratory passages -- a "cold." This common infection causes nasal congestion, drainage, and often sore throat and cough. It is highly contagious. The disease usually lasts about 10 to 14 days. There is no "cure" for the viral infection -- it must run its course. If there is a complication, such as bacterial infection in the nose, sinuses, middle ear, or bronchial tubes, antibiotics may be required. The antibiotics won't affect the virus. Drink plenty of fluids. A humidifier may help. An expectorant medication or decongestant may make you more comfortable. Use acetaminophen or ibuprofen for fever or aches. See the doctor if fever persists over two days, if there is any significant worsening of your symptoms, or if you simply fail to improve as expected. Leg Cramps There are many causes of leg cramps. Most of the time, there is no underlying serious medical condition. Calf muscle cramps that occur at rest or during the night are a nuisance, but are usually not caused by any serious medical problem. Leg cramps that occur during exercise (walking, stair climbing) can be caused by poor circulation. Cramping is more likely to occur if the legs swell. Over-exercise or overheating can cause muscle spasms even with good circulation. Cramp-like muscle pain can be an early symptom of blood clots in the lower leg. Sometimes cramping is due to a previous muscle injury. Occasionally cramping is a symptom of dehydration or of low levels of sodium, potassium, calcium or magnesium. When a cramp occurs, stretch gently and massage the cramped muscle. Get enough fluids, potassium, and sodium for the muscle to work normally. Avoid strenuous exercise for several days if you've been having frequent leg cramps. Medicines such a quinine may be helpful in some patients with night cramps. Call the doctor or return if you develop redness, swelling, bruising, or increased pain in the leg, or if the foot becomes cold, numb, pale, or discolored. You are a little dry meaning you need to drink more fluids. If your urine changes color and becomes darker or red please return to the emergency room for some blood work. Please drink some Gatorade for the next couple days. Please eat a banana for the next 3 days. Please return to the ED for any increase in your symptoms or any other concerns USE OF ACETAMINOPHEN (Tylenol): Acetaminophen may be taken for pain relief or fever control. It's much safer than aspirin, offering a wider range of "safe" dosages. It is safe during . Some brand names are Tylenol, Panadol, Datril, Anacin 3, Tempra, and Liquiprin. Acetaminophen can be repeated every four hours. The following are maximum recommended dosages: >89 pounds or adults 650 mg to 900 mg Acetaminophen can be repeated every four hours. Maximum dose not to exceed 4000 mg a day. SMOKING: If you smoke, you should stop smoking. The tar and chemicals in cigarette smoke are harmful. Smoking has been shown to cause: emphysema chronic bronchitis lung cancer mouth and throat cancer stomach and pancreas cancer premature aging defects In addition, smoking increases ear and lung infections in children of smokers. FOLLOW-UP CARE: If you have been referred to a physician for follow-up care, call the physician s office for an appointment as you were instructed or within the next two days. If you experience worsening or a significant change in your symptoms, notify the physician immediately or return to the Emergency Department at any time for re-evaluation. Forms: Elevated Blood Pressure, Smoking Cessation Education
[2018-03-06 01:37] LABS: URINE AMPHETAMINES SCREEN NEGATIVE; URINE BARBITURATES SCREEN NEGATIVE; URINE BENZODIAZEPINES SCREEN NEGATIVE; URINE COCAINE SCREEN NEGATIVE; URINE MARIJUANA (THC) SCREEN NEGATIVE; URINE METHADONE SCREEN NEGATIVE; URINE PHENCYCLIDINE SCREEN NEGATIVE
[2018-03-06 01:44] LABS: AMORPHOUS SEDIMENT,URINE TRACE /HPF; APPEARANCE,URINE SLIGHTLY-CLOUDY; BILIRUBIN,URINE NEGATIVE (NEGATIVE); COLOR,URINE YELLOW; GLUCOSE, URINE NEGATIVE (NEGATIVE); KETONES,URINE TRACE mg/dL (NEGATIVE); LEUKOCYTE ESTERASE,URINE NEGATIVE (NEGATIVE); NITRITE,URINE NEGATIVE (NEGATIVE); PROTEIN,URINE NEGATIVE (NEGATIVE); URINE SPECIFIC GRAVITY 1.024
[2018-03-06] MEDS ORDERED: ACETAMINOPHEN 325 MG TABLET PO ONE (01:45)
[2018-03-06 02:22] VITALS: BP 144/87
[2018-03-06] MEDS ORDERED: BENZTROPINE MESYLATE 1 MG TABLET PO SCH (10:00)
== END 2018-03-06 02:15 | disposition home or self-care (01) ==
LOC: ER 00:04
DX: J06.9 Acute upper respiratory infection, unspecified (principal); J02.9 Acute pharyngitis, unspecified; B97.89 Other viral agents as the cause of diseases classified elsewhere; R25.2 Cramp and spasm; R09.89 Other specified symptoms and signs involving the circulatory and respiratory systems; F17.210 Nicotine dependence, cigarettes, uncomplicated
CPT/HCPCS: 99406; 99283; 81001; 80307; J3490

== ENCOUNTER 2018-03-12 03:31 | Emergency (ER) | payer MEDICAID ==
--- NOTE | 2018-03-12 04:55 | RADIOLOGY REPORT (SQ) ---
EXAM DESCRIPTION: XR CHEST 1 VIEW COMPLETED DATE/TME: 03/12/2018 04:29 CLINICAL HISTORY: 47 years, Male, chest pain COMPARISON: 10/17/2017 chest NUMBER OF VIEWS: 1 TECHNIQUE: Frontal view chest LIMITATIONS: None. FINDINGS: Heart size normal. Lungs are clear. No pneumothorax IMPRESSION: Negative chest copyright 2010 [employer]- All Rights Reserved
--- NOTE | 2018-03-12 05:41 | ER Document Report ---
ED General - General Chief Complaint: Chest Pain Stated Complaint: CHEST PAIN Time Seen by Provider: 03/12/18 04:29 Notes: Patient is a 47-year-old male who presents with complaint of chest pain. He says chest pain is intermittent. Substernal nonradiating. He says he feels is related to stress as there is some people have been making him upset recently. He says whenever he gets upset he has a little bit of the chest pain. Currently he does not have pain. Says been ongoing intermittently for a few days. No fevers. No vomiting. No difficulty breathing. He does have history of schizophrenia. He admits he is not currently on his medications but actually [facility] to [facility] yesterday and is post follow-up with them today to get restarted on his treatment. He does not have any thoughts of suicide at this time. Smoker. He denies any drug use. He says the last time he used drugs was marijuana approximately 4-5 months ago. He says he used cocaine approximately 10 years ago but has not used since then. He denies any personal history of coronary disease. Denies any history of hypertension or diabetes. He has no other complaints at this time. TRAVEL OUTSIDE OF THE [place] IN LAST 30 DAYS: No - Related Data Allergies/Adverse Reactions: No Known Allergies Allergy (Verified 09/15/17 13:43) Past Medical History - Social History Smoking Status: Current Every Day Smoker Frequency of alcohol use: None Drug Abuse: None Family History: Reviewed & Not Pertinent Patient has suicidal ideation: No Patient has homicidal ideation: No Renal/ Medical History: Denies: Hx Peritoneal Dialysis Psychiatric Medical History: Reports: Hx Schizophrenia - Immunizations Immunizations up to date: Yes Hx Diphtheria, Pertussis, Tetanus Vaccination: Yes Review of Systems - Review of Systems Notes: My Normal Review Basic REVIEW OF SYSTEMS: CONSTITUTIONAL : Denies fever, chills, or sweats. Denies recent illness. CARDIOVASCULAR: Intermittent chest pain. RESPIRATORY: Denies cough, cold, or chest congestion. Denies shortness of breath, difficulty breathing, or wheezing. GASTROINTESTINAL: Denies abdominal pain. Denies nausea, vomiting, or diarrhea. MUSCULOSKELETAL: Denies neck or back pain or joint pain or swelling. SKIN: Denies rash or skin lesions. NEUROLOGICAL: Denies altered mental status or loss of consciousness. Denies headache. Denies weakness or paralysis or loss of use of either side. Denies problems with gait or speech. Denies sensory or motor loss. PSYCHIATRIC: Denies anxiety or stress or depression. ALL OTHER SYSTEMS REVIEWED AND NEGATIVE. Physical Exam - Vital signs Vitals: Resp Pulse Ox 21 H 99 03/12/18 03:58 03/12/18 03:58 - Notes Notes: General Appearance: Well nourished, alert, cooperative, no acute distress, no obvious discomfort. Well-appearing. Vitals: reviewed, See vital signs table. Head: no swelling or tenderness to the head Eyes: PERRL, EOMI, Conjuctiva clear Mouth: No decreasd moisture Lungs: No wheezing, No rales, No rhonci, No accessory muscle use, good air exchange bilaterally. Heart: Normal rate, Regular rythm, No murmur, no rub Abdomen: Normal BS, soft, No rigidity, No abdominal tenderness, No guarding, no rebound, no abdominal masses, no organomegaly Extremities: strength 5/5 in all extremities, good pulses in all extremities, no swelling or tenderness in the extremities, no edema. Skin: warm, dry, appropriate color, no rash Neuro: speech clear, oriented x 3, normal affect, responds appropriately to questions. Course - Re-evaluation Re-evalutation: 03/12/18 05:41 Clinically patient looks very well. Admits to some recent chest pain but feels himself that could be related to becoming agitated because of some things that recent people from talking about him. He does have history of schizophrenia but currently does not appear to be hallucinating and actually is able hold a appropriate good conversation with me. He [place] has a plan to follow-up again with [facility] today and to restart his treatment for this. He has a heart score of 2. I feel he is safe to be discharged home. Strongly encouraged him to return to ER if he has worsening recurrent chest pain, difficulty breathing, or if he feels unwell. Patient agrees with plan and will be discharged home. Dictation of this chart was performed using voice recognition software; therefore, there may be some unintended grammatical errors. - Vital Signs Vital signs: Temp Pulse Resp BP Pulse Ox 22 H 138/89 H 99 03/12/18 04:31 03/12/18 04:31 03/12/18 04:31 Discharge - Discharge Clinical Impression: Chest pain Qualifiers: Chest pain type: unspecified Qualified Code(s): R07.9 - Chest pain, unspecified Condition: Good Disposition: HOME, SELF-CARE Instructions: Family Physicians / Practices Additional Instructions: Please follow up with the doctors at [facility]. I have also provided a list of local primary care doctors you can establish yourself with. Please feel free to return to the ER if you have recurrent chest pain, difficulty breathing, abdominal pain, or if you feel unwell
[2018-03-12 06:07] VITALS: BP 127/80
--- NOTE | 2018-03-12 21:28 | EKG REPORT ---
SEVERITY:- NORMAL ECG - SINUS RHYTHM : Confirmed by: Salima Maldonado MD 12-Mar-2018 21:27:49
== END 2018-03-12 06:18 | disposition home or self-care (01) ==
LOC: ER 03:31
DX: R07.9 Chest pain, unspecified (principal); F17.200 Nicotine dependence, unspecified, uncomplicated
CPT/HCPCS: 36415; 71045; 84484; 93005; 93010; 99285

== ENCOUNTER 2018-03-15 04:13 | Emergency (ER) | payer MEDICAID ==
[2018-03-15] MEDS ORDERED: IBUPROFEN 600 MG TABLET PO ONE (06:11)
--- NOTE | 2018-03-15 06:17 | ER Document Report ---
ED Extremity Problem, Lower - General Chief Complaint: Leg Pain Stated Complaint: LEG PAIN Time Seen by Provider: 03/15/18 05:58 TRAVEL OUTSIDE OF THE [place] IN LAST 30 DAYS: No - HPI Notes: Patient is a 47-year-old male that presents to the emergency department for chief complaint of thigh cramps. Patient states he has had intermittent cramps in his thighs for the last few weeks. He states it is worse when he is doing yoga or working out. He states he has been recently incarcerated and has not had a chance to find a primary care physician since getting out. He also reports he has a history of schizophrenia and is not currently on medications. He denies any hallucinations , homicidal or suicidal ideations. He has not taken any medication at home for his leg cramps. Currently he states he is not having any leg pain because he is not working out. He denies any chest pain, dyspnea, palpitations, fevers, chills, nausea and vomiting. Past Medical History: Schizophrenia Past Surgical History: Negative Social History: Strip alcohol abuse. Denies drug use. Daily tobacco use. Family History: Reviewed and noncontributory for presenting illness Allergies: Reviewed, see documented allergy list. REVIEW OF SYSTEMS: CONSTITUTIONAL : No fever No chills No diaphoresis No recent illness EENT: No vision changes No congestion No sore throat CARDIOVASCULAR: No chest pain No palpitations RESPIRATORY: No shortness of breath No cough No difficulty breathing GASTROINTESTINAL: No abdominal pain No nausea No vomiting No diarrhea GENITOURINARY: No dysuria No hematuria No difficulty urinating MUSCULOSKELETAL: No back pain leg pain No arm pain SKIN: No rashes No lesions LYMPHATIC: No swollen, enlarged glands. NEUROLOGICAL: No lightheadedness No headache No weakness No paresthesias PSYCHIATRIC: No anxiety No depression PHYSICAL EXAMINATION: Vital signs reviewed, nursing noted reviewed. GENERAL: Well-appearing, well-nourished and in no acute distress. HEAD: Atraumatic, normocephalic. EYES: Eyes appear normal, extraocular movements intact, sclera anicteric, conjunctiva are normal. ENT: nares patent, oropharynx clear without exudates. Moist mucous membranes. NECK: Normal range of motion, supple without lymphadenopathy LUNGS: Breath sounds clear to auscultation bilaterally and equal. No wheezes rales or rhonchi. HEART: Regular rate and rhythm without murmurs ABDOMEN: Soft, nontender, normoactive bowel sounds. No rebound, guarding, or rigidity. No masses appreciated. EXTREMITIES: Nontender, good range of motion, no pitting or edema. NEUROLOGICAL: No focal neurological deficits. Moves all extremities spontaneously Motor and sensory grossly intact on exam. PSYCH: tangential thoughts, calm, cooperative SKIN: Warm, Dry, normal turgor, no rashes or lesions noted on exposed skin - Related Data Allergies/Adverse Reactions: No Known Allergies Allergy (Verified 09/15/17 13:43) Past Medical History - Social History Smoking Status: Current Every Day Smoker Chew tobacco use (# tins/day): No Frequency of alcohol use: None Drug Abuse: None Family History: Reviewed & Not Pertinent Patient has suicidal ideation: No Patient has homicidal ideation: No Renal/ Medical History: Denies: Hx Peritoneal Dialysis Psychiatric Medical History: Reports: Hx Schizophrenia - Immunizations Immunizations up to date: Yes Hx Diphtheria, Pertussis, Tetanus Vaccination: Yes Physical Exam - Vital signs Vitals: Temp Pulse Resp BP Pulse Ox 97.3 F 97 17 141/91 H 99 03/15/18 04:17 03/15/18 04:17 03/15/18 04:17 03/15/18 04:17 03/15/18 04:17 Course - Re-evaluation Re-evalutation: 03/15/18 06:16 Vitals reviewed. Nursing notes reviewed. Patient is in no acute distress. Currently he denies any leg cramps however he is requesting a dose of ibuprofen which be provided. He has schizophrenia and has not been on medication because of recent incarceration. Patient is not having any active hallucinations, suicidal ideation or homicidal ideation. He appears well kept. [facility] Patient was encouraged to increase oral hydration prior to exercise. With him being a symptomatic currently I do not suspect rhabdomyolysis, electrolyte abnormality or DVT. Patient is able to ambulate without difficulty. He will be discharged in stable condition with referral to primary care physician as well. - Vital Signs Vital signs: Temp Pulse Resp BP Pulse Ox 97.3 F 97 17 141/91 H 99 03/15/18 04:17 03/15/18 04:17 03/15/18 04:17 03/15/18 04:17 03/15/18 04:17 Discharge - Discharge Clinical Impression: Leg cramps Condition: Stable Disposition: HOME, SELF-CARE Instructions: Leg Cramps ([facility]) Additional Instructions: Please return to the emergency department if you have any worsening, or concern of your symptoms. Please return to the emergency department if you develop chest pain, difficulty breathing, severe abdominal pain, or ongoing vomiting. Please follow-up with your primary care physician in 2-3 days and any other recommended physicians. If prescribed, take all medications as directed. If you have any questions or concerns do not hesitate to return the emergency department for evaluation. [] Referrals: [facility] [Provider Group] - Follow up as needed [facility] [Provider Group] - Follow up as needed
[2018-03-15 06:28] VITALS: BP 136/97
== END 2018-03-15 06:27 | disposition home or self-care (01) ==
LOC: ER 04:13
DX: R25.2 Cramp and spasm (principal); F20.9 Schizophrenia, unspecified; F17.200 Nicotine dependence, unspecified, uncomplicated
CPT/HCPCS: 99283; J3490

== ENCOUNTER 2018-03-16 02:14 | Emergency (ER) | payer MEDICAID ==
[2018-03-16 03:47] LABS: ABSOLUTE BASOPHILS # (AUTO) 0.1 10^3/uL (0.0-0.2); ABSOLUTE EOSINOPHILS # (AUTO) 0.1 10^3/uL (0.0-0.6); ABSOLUTE LYMPHOCYTES (AUTO) 1.3 10^3/uL (0.5-4.7); ABSOLUTE MONOCYTES (AUTO) 0.7 10^3/uL (0.1-1.4); ABSOLUTE NEUT (AUTO) 5.6 10^3/uL (1.7-8.2); BASOPHILS % (AUTO) 0.7 % (0-2); EOSINOPHILS % (AUTO) 0.7 % (0-6); HEMATOCRIT 45.3 % (37.9-51.0); HEMOGLOBIN 15.7 g/dL (13.5-17.0); LYMPHOCYTES % (AUTO) 16.7 % (13-45); MEAN CORPUSCULAR HEMOGLOBIN 32.3 pg (27.0-33.4); MEAN CORPUSCULAR HGB CONC 34.6 g/dL (32.0-36.0); MEAN CORPUSCULAR VOLUME 93 fl (80-97); MONOCYTES % (AUTO) 9.2 % (3-13); PLATELET COUNT 287 10^3/uL (150-450); RED BLOOD COUNT 4.85 10^6/uL (4.35-5.55); RED CELL DISTRIBUTION WIDTH 13.4 % (11.5-14.0); SEGMENTED NEUTROPHILS % (AUTO) 72.7 % (42-78); TOTAL CELLS COUNTED % (AUTO) 100 %; WHITE BLOOD COUNT 7.7 10^3/uL (4.0-10.5)
[2018-03-16 04:07] LABS: ALANINE AMINOTRANSFERASE 19 U/L (21-72); ALBUMIN 4.6 g/dL (3.5-5.0); ALKALINE PHOSPHATASE 102 U/L (38-126); ANION GAP 12 (5-19); ASPARTATE AMINO TRANSFERASE 26 U/L (17-59); BILIRUBIN,DIRECT 0.3 mg/dL (0.0-0.4); BILIRUBIN,TOTAL 1.5 mg/dL (0.2-1.3); BLOOD UREA NITROGEN 13 mg/dL (7-20); CALCIUM 9.6 mg/dL (8.4-10.2); CARBON DIOXIDE 23 mmol/L (22-30); CHLORIDE 105 mmol/L (98-107); GLUCOSE 114 mg/dL (75-110); POTASSIUM 3.9 mmol/L (3.6-5.0); SODIUM 139.6 mmol/L (137-145); TOTAL PROTEIN 8.4 g/dL (6.3-8.2)
[2018-03-16 04:08] LABS: ACETAMINOPHEN < 10 ug/mL (10-30); ALCOHOL < 10 mg/dL (NONE DETECTED); SALICYLATE < 1.0 mg/dL (2.0-20.0)
--- NOTE | 2018-03-16 04:23 | ER Document Report ---
Addendum entered and electronically signed by DM ASTUDILLO LPC 03/16/18 12:19: Discharge - Discharge Clinical Impression: Auditory hallucinations Schizophrenia Qualifiers: Schizophrenia type: unspecified Qualified Code(s): F20.9 - Schizophrenia, unspecified Condition: Stable Disposition: HOME, SELF-CARE Additional Instructions: Schizophrenia Schizophrenia is a chemical disorder that affects how the brain functions. The exact cause is unknown, but it tends to run in families. It is NOT caused by emotional trauma. Schizophrenia causes disordered thinking, including unusual beliefs and inability to "process" happenings around the patient. Patients with schizophrenia benefit greatly from medicine. These medicines are called antipsychotics. Never stop the medicine without the doctor's approval. Counselling may help the patient deal with his disease. Schizophrenics require a very ordered environment. Stresses and sudden changes may bring out symptoms. Drugs and alcohol abuse may become problems. Contact the counsellor or crisis line if there are thoughts of suicide or of harming others, or if you become aware of unusual thoughts or beliefs Hallucinations You seem to be having hallucinations. Hallucinations are seeing, hearing, or feeling things that don't exist. These symptoms commonly occur with drug abuse and schizophrenia. Drugs like PCP, LSD, MDMA, peyote, and "psychedelic mushrooms" can cause frightening hallucinations. Users of methamphetamine or crack cocaine often see and feel bugs crawling on their skin. Patients with schizophrenia may hear voices that no one else can hear. The delusions of schizophrenia often involve conspiracies or relationships that are not real. When symptoms are due to drug abuse, the mental state usually improves as the drug wears off. Someone you trust should be with you until you are better, to protect you and calm your fears. Tranquilizer medicine is helpful at controlling hallucinations, anxiety, and deluded thoughts. Get a proper diet and enough sleep. Most patients do very well when they get proper medical treatment and social support. You should return at once if your symptoms get worse, if you are having suicidal thoughts or thoughts about hurting others, or if you feel that you are in danger. Follow up: You have been scheduled for follow up therapy at [facility] in [place] on 04/16/2017 at 0900. This initial appointment will be for therapy and assessment. You will then get scheduled for medication management which may not be until May or June. You have been given the Mental Health resource sheet that documents appointment date and time as well as the crisis number. If symptoms continue or worsen please contact your physician, utilize mobile crisis or return to the emergency department. Referrals: [facility] [Outside] - 04/16/18 9:00 am [facility] [Outside] - Follow up as needed Original Note: ED General - General Chief Complaint: Psych Problem Stated Complaint: PSYCH Time Seen by Provider: 03/16/18 02:37 Notes: Patient is a 47-year-old male who presents to the emergency department with a chief complaint of hearing voices and hallucinations. He states he has been alcohol free for the past 4 months and has been attending Alcoholics Anonymous meetings. He also states that he has been drug free of marijuana and heroin. He continued to state that he would have associations of previous encounters that would show up when he would meet new people. He denies suicidal or homicidal thoughts at this time. He has a history of schizophrenia, and is off his medications. He is looking to get psychiatric help. TRAVEL OUTSIDE OF THE [place] IN LAST 30 DAYS: No - Related Data Allergies/Adverse Reactions: No Known Allergies Allergy (Verified 09/15/17 13:43) Past Medical History - Social History Smoking Status: Current Every Day Smoker Family History: Reviewed & Not Pertinent Patient has suicidal ideation: No Patient has homicidal ideation: No Renal/ Medical History: Denies: Hx Peritoneal Dialysis Psychiatric Medical History: Reports: Hx Schizophrenia - Immunizations Immunizations up to date: Yes Hx Diphtheria, Pertussis, Tetanus Vaccination: Yes Review of Systems - Review of Systems Notes: REVIEW OF SYSTEMS: CONSTITUTIONAL : Denies recent illness. Denies recent unintentional weight loss. Denies fever, chills, or sweats. EENT: Denies eye, ear, throat, or mouth pain, discharge, or symptoms. Denies nasal or sinus congestion. CARDIOVASCULAR: Denies chest pain. RESPIRATORY: Denies shortness of breath, cough, congestion, difficulty breathing, or wheezing. GASTROINTESTINAL: Denies nausea, vomiting, and diarrhea. Denies abdominal pain. Denies constipation. GENITOURINARY: Denies difficulty urinating, burning, blood in urine, urgency or frequency. MUSCULOSKELETAL: Denies neck and back pain. Denies joint pain or swelling. SKIN: Denies rash, itchiness, or lesions HEMATOLOGIC : Denies easy bruising or bleeding. LYMPHATIC: Denies swollen, painful, enlarged glands. NEUROLOGICAL: Denies no numbness or tingling denies weakness. Denies headache. Denies altered mental status. Denies alteration in speech. PSYCHIATRIC: See HPI All other systems reviewed and negative. Physical Exam - Vital signs Vitals: Temp Pulse Resp BP Pulse Ox 97.4 F 110 H 16 110/89 H 96 03/16/18 02:25 03/16/18 02:25 03/16/18 02:25 03/16/18 02:25 03/16/18 02:25 - Notes Notes: PHYSICAL EXAMINATION: GENERAL: Appears well, healthy, well-nourished, no acute distress. HEAD: Normocephalic, atraumatic. EYES: PERRL, conjunctiva normal, all extraocular movements intact, sclera nonicteric ENT: Moist mucous membranes. NECK: Supple, no noticeable swelling, redness, rash. Normal range of motion. LUNGS: Equal breath sounds bilaterally and clear to auscultation. No wheezes rales or rhonchi. CARDIOVASCULAR: S1-S2, regular rate, regular rhythm. Radial pulses 2+, normal. ABDOMEN: Normoactive bowel sounds. Soft, nontender, no guarding, no rebound tenderness, and no masses palpated. EXTREMITIES: Normal strength and range of motion, no pitting or edema. No cyanosis. NEUROLOGICAL: Moves all extremities upon command. Strength 5/5 in all extremities. PSYCH: Normal mood, normal affect. SKIN: Warm, dry. No rash, lesions, ulcerations noted. Normal skin turgor. Course - Re-evaluation Re-evalutation: 03/16/18 02:30 At this time since the patient is not acutely suicidal or homicidal, he will not be involuntarily committed. He is willing to stay on his own and is here voluntarily. He states he would like to be seen by mental health in the morning. 03/16/18 06:26 Patient's urinalysis and urine drug screen are still pending. His other labs are unremarkable. Patient is medically clear for mental health evaluation. He will be seen by Dr. Camarena in the morning. I have spoke with the patient and he is in agreement. - Vital Signs Vital signs: Temp Pulse Resp BP Pulse Ox 98.0 F 100 20 133/86 H 100 03/16/18 05:58 03/16/18 05:58 03/16/18 05:58 03/16/18 05:58 03/16/18 05:58 - Laboratory Result Diagrams: 03/16/18 03:36 03/16/18 03:36 Laboratory results interpreted by me: 03/16/18 03:36 Glucose 114 H Total Bilirubin 1.5 H ALT 19 L Total Protein 8.4 H Salicylates < 1.0 L Acetaminophen < 10 L - EKG Interpretation by Me Additional EKG results interpreted by me: 03/16/18 04:03 Sinus rhythm. Rate 87. SD 164; QRS 82; QT 372; QTC 448. No ST elevations or depressions. Discharge - Discharge Clinical Impression: Auditory hallucinations Schizophrenia Qualifiers: Schizophrenia type: unspecified Qualified Code(s): F20.9 - Schizophrenia, unspecified Condition: Stable Disposition: PSYCH HOSP/UNIT
[2018-03-16 07:07] LABS: APPEARANCE,URINE CLEAR; BILIRUBIN,URINE NEGATIVE (NEGATIVE); COLOR,URINE YELLOW; GLUCOSE, URINE NEGATIVE (NEGATIVE); KETONES,URINE 20 mg/dL (NEGATIVE); LEUKOCYTE ESTERASE,URINE NEGATIVE (NEGATIVE); NITRITE,URINE NEGATIVE (NEGATIVE); PROTEIN,URINE NEGATIVE (NEGATIVE); URINE SPECIFIC GRAVITY 1.027
[2018-03-16 07:19] LABS: URINE AMPHETAMINES SCREEN NEGATIVE; URINE BARBITURATES SCREEN NEGATIVE; URINE BENZODIAZEPINES SCREEN NEGATIVE; URINE COCAINE SCREEN NEGATIVE; URINE MARIJUANA (THC) SCREEN NEGATIVE; URINE METHADONE SCREEN NEGATIVE
[2018-03-16 08:15] LABS: URINE PHENCYCLIDINE SCREEN NEGATIVE
--- NOTE | 2018-03-16 09:18 | ER Document Report ---
Doctor's Note Notes: 03/16/18 09:17 Patient seen and evaluated by myself. No issues overnight or this morning per nursing staff. Patient's vital signs are stable. Patient has no current complaints. Patient denies any hallucinations, suicidal ideations, homicidal ideations. Patient does have a history of schizophrenia and has been off of his medication recently. Behavioral health evaluated the patient. Will discharge patient home. Unable to get follow up for patient until May. I will prescribe 2 weeks of risperdal and cogentin. Patient told to take the medication as directed, to follow up as scheduled, and to follow up with primary care physician for medication refill. 03/16/18 09:18 03/16/18 14:07 Discharge - Discharge Clinical Impression: Auditory hallucinations Schizophrenia Qualifiers: Schizophrenia type: unspecified Qualified Code(s): F20.9 - Schizophrenia, unspecified Condition: Stable Disposition: HOME, SELF-CARE Additional Instructions: Schizophrenia Schizophrenia is a chemical disorder that affects how the brain functions. The exact cause is unknown, but it tends to run in families. It is NOT caused by emotional trauma. Schizophrenia causes disordered thinking, including unusual beliefs and inability to "process" happenings around the patient. Patients with schizophrenia benefit greatly from medicine. These medicines are called antipsychotics. Never stop the medicine without the doctor 's approval. Counselling may help the patient deal with his disease. Schizophrenics require a very ordered environment. Stresses and sudden changes may bring out symptoms. Drugs and alcohol abuse may become problems. Contact the counsellor or crisis line if there are thoughts of suicide or of harming others, or if you become aware of unusual thoughts or beliefs Hallucinations You seem to be having hallucinations. Hallucinations are seeing, hearing, or feeling things that don't exist. These symptoms commonly occur with drug abuse and schizophrenia. Drugs like PCP, LSD, MDMA, peyote, and "psychedelic mushrooms" can cause frightening hallucinations. Users of methamphetamine or crack cocaine often see and feel bugs crawling on their skin. Patients with schizophrenia may hear voices that no one else can hear. The delusions of schizophrenia often involve conspiracies or relationships that are not real. When symptoms are due to drug abuse, the mental state usually improves as the drug wears off. Someone you trust should be with you until you are better, to protect you and calm your fears. Tranquilizer medicine is helpful at controlling hallucinations, anxiety, and deluded thoughts. Get a proper diet and enough sleep. Most patients do very well when they get proper medical treatment and social support. You should return at once if your symptoms get worse, if you are having suicidal thoughts or thoughts about hurting others, or if you feel that you are in danger. Follow up: You have been scheduled for follow up therapy at [facility] in [place] on 04/16/2017 at 0900. This initial appointment will be for therapy and assessment. You will then get scheduled for medication management which may not be until May or June. You have been given the Mental Health resource sheet that documents appointment date and time as well as the crisis number. If symptoms continue or worsen please contact your physician, utilize mobile crisis or return to the emergency department. Prescriptions: Benztropine Mesylate [Cogentin 1 mg Tablet] 1 mg PO DAILY #14 tablet Risperidone [Risperdal] 0.5 mg PO BID #28 tablet Referrals: [facility] [Outside] - 04/16/18 9:00 am [facility] [Outside] - Follow up as needed
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
[2018-03-16 14:31] VITALS: BP 128/82
--- NOTE | 2018-03-17 07:47 | EKG REPORT ---
SEVERITY:- BORDERLINE ECG - SINUS RHYTHM BORDERLINE RIGHT AXIS DEVIATION NONSPECIFIC ST-T CHANGES- INFERIOR LEADS : Confirmed by: Ed Mcneil MD 17-Mar-2018 07:46:06
== END 2018-03-16 14:30 | disposition home or self-care (01) ==
LOC: ER 02:14
DX: F20.9 Schizophrenia, unspecified (principal); F17.200 Nicotine dependence, unspecified, uncomplicated
CPT/HCPCS: 36415; 80053; 80307; 81001; 85025; 93005; 93010; 99285

== ENCOUNTER 2018-03-17 01:31 | Emergency (ER) | payer MEDICAID ==
[2018-03-17 01:45] VITALS: BP 178/92
== END 2018-03-17 02:15 | disposition left against medical advice (07) ==
LOC: ER 01:31
DX: Z53.21 Procedure and treatment not carried out due to patient leaving prior to being seen by health care provider (principal)

== ENCOUNTER 2018-03-17 18:25 | Emergency (ER) | payer MEDICAID ==
--- NOTE | 2018-03-17 19:19 | ER Document Report ---
ED Medical Screen (RME) - General Chief Complaint: Abdominal Cramping Stated Complaint: TIRED,RESTLESS,LEG STIFFNESS Mode of Arrival: Ambulatory Information source: Patient, [facility] Records Notes: 47-year-old male with schizophrenia, polysubstance abuse presents with complaint of restlessness, drowsiness. This is the patient's sixth visit to the emergency department in the month of January and fourth visit this week. Patient was evaluated by psychiatry yesterday and discharged home with medication recommendations which the patient has not filled. He did state to the nurse that if he could not find some place to sleep that he would be back. I have greeted and performed a rapid initial assessment of this patient. A comprehensive ED assessment and evaluation of the patient, analysis of test results and completion of medical decision making process we will be contacted by additional ED providers. PHYSICAL EXAMINATION: Vital signs reviewed-tachycardic GENERAL: Well-appearing, well-nourished and in no acute distress. LUNGS: No respiratory distress Musculoskeletal: Normal range of motion NEUROLOGICAL: Normal speech, normal gait. PSYCH: Normal mood, normal affect. SKIN: Warm, Dry, normal turgor, no rashes or lesions noted. TRAVEL OUTSIDE OF THE [place] IN LAST 30 DAYS: No - HPI Onset: Other - Related Data Allergies/Adverse Reactions: No Known Allergies Allergy (Verified 09/15/17 13:43) Past Medical History Renal/ Medical History: Denies: Hx Peritoneal Dialysis Psychiatric Medical History: Reports: Hx Schizophrenia - Immunizations Immunizations up to date: Yes Hx Diphtheria, Pertussis, Tetanus Vaccination: Yes Physical Exam - Vital signs Vitals: Temp Pulse Resp BP Pulse Ox 98.0 F 115 H 16 127/76 H 97 03/17/18 18:33 03/17/18 18:33 03/17/18 18:33 03/17/18 18:33 03/17/18 18:33 Course - Vital Signs Vital signs: Temp Pulse Resp BP Pulse Ox 98.0 F 115 H 16 127/76 H 97 03/17/18 18:33 03/17/18 18:33 03/17/18 18:33 03/17/18 18:33 03/17/18 18:33
[2018-03-17] MEDS ORDERED: BENZTROPINE MESYLATE 1 MG TABLET PO ONE (20:15)
[2018-03-17] MEDS ORDERED: RISPERIDONE 0.25 MG TABLET PO ONE (20:16)
--- NOTE | 2018-03-17 20:22 | ER Document Report ---
ED General - General Chief Complaint: Psych Problem Stated Complaint: TIRED,RESTLESS,LEG STIFFNESS Time Seen by Provider: 03/17/18 19:45 Mode of Arrival: Ambulatory Notes: Patient is a 47-year-old male presents the emergency department complaining of not having any vertigo. Patient has been to this facility multiple times in the last couple of days. Was discharged from [facility] on 03/16/2018. Is given prescriptions for Cogentin 1 mg daily and Risperdal 0.05 twice daily. Patient still has the prescriptions and discharge paperwork in his hands upon my HPI. Patient initially states "I have been running around all over the place." Then when asked what he means he is unable to elaborate. Patient is open and admits that he is homeless and does not have a place to go. In discussing with him and nursing staff he was provided with a list of shelters when he was discharged from [facility] on 03/16/2018. Patient states he feels very paranoid. Patient is conscious alert and oriented x4 he is able to have a steady conversation and does not appear to be hallucinating at this time. Patient initially states both of his feet hurt from "running around all over the place. " When asked if he has any pain at this time he states he has no pain in his feet. Patient denies chest pain, shortness of breath, abdominal pain, nausea, vomiting , diarrhea, cramps. States he was to this facility and diagnosed with "not drinking enough water." Patient states he has been trying to stay well- hydrated. Past medical history: Schizophrenia Medications: Cogentin, Risperdal Allergies: None TRAVEL OUTSIDE OF THE [place] IN LAST 30 DAYS: No - Related Data Allergies/Adverse Reactions: No Known Allergies Allergy (Verified 09/15/17 13:43) Past Medical History - General Information source: [facility], [facility] - Social History Smoking Status: Current Every Day Smoker Family History: Reviewed & Not Pertinent Patient has suicidal ideation: No Patient has homicidal ideation: No Renal/ Medical History: Denies: Hx Peritoneal Dialysis Psychiatric Medical History: Reports: Hx Schizophrenia - Immunizations Immunizations up to date: Yes Hx Diphtheria, Pertussis, Tetanus Vaccination: Yes Review of Systems - Review of Systems Constitutional: No symptoms reported EENT: No symptoms reported Cardiovascular: No symptoms reported Respiratory: No symptoms reported Gastrointestinal: No symptoms reported Genitourinary: No symptoms reported Male Genitourinary: No symptoms reported Musculoskeletal: No symptoms reported Skin: No symptoms reported Hematologic/Lymphatic: No symptoms reported Neurological/Psychological: See HPI Physical Exam - Vital signs Vitals: Temp Pulse Resp BP Pulse Ox 98.0 F 115 H 16 127/76 H 97 18 18:33 1818 18:33 18 18:33 18 18:33 03/17/18 18:33 Course - Re-evaluation Re-evalutation: 03/17/18 20:20 Patient is currently denying SI, HI, auditory or visual hallucinations. He initially states he thinks he needs his medications and he was unable to get them filled. I discussed at length with patient I would be willing to give him a dose of his medications in the emergency room. I also went over prescription savings cards and where he needs to go to the pharmacy. Patient states he is very appreciative of the discount cards and will go to the pharmacy after leaving the emergency room. Patient continues to deny chest pain, shortness of breath, abdominal pain, nausea, vomiting, diarrhea, muscle cramps, headache, any symptoms. Patient Does Appear Well kept And is wearing appropriate close for the weather. Patient states he attempted to go to 1 of the shelters that was provided to him but he states he did not get there in time. Patient's initial heart rate was documented at 114, upon discharge patient nontoxic, not tachycardic, not hypotensive, afebrile, stable for discharge. - Vital Signs Vital signs: Temp Pulse Resp BP Pulse Ox 98.0 F 115 H 16 127/76 H 97 03/17/18 18:33 1818 18:33 1818 18:33 1818 18:33 03/17/18 18:33 Discharge - Discharge Clinical Impression: Medication administered Schizophrenia Qualifiers: Schizophrenia type: other Qualified Code(s): F20.89 - Other schizophrenia; F20.8 - Other schizophrenia Condition: Stable Disposition: HOME, SELF-CARE Instructions: [facility] ([facility] Additional Instructions: You have been seen and treated in the emergency room for your schizophrenia. You need to get your medications filled and follow-up with the homeless shelters we have provided you. Please make sure you make an appointment with a primary care provider as well. Please return to the emergency room for any other concerning symptoms.
[2018-03-17 20:41] VITALS: BP 127/74
== END 2018-03-17 20:39 | disposition home or self-care (01) ==
LOC: ER 18:25
DX: F20.9 Schizophrenia, unspecified (principal); M79.671 Pain in right foot; M79.672 Pain in left foot; F17.200 Nicotine dependence, unspecified, uncomplicated; Z59.0 Homelessness
CPT/HCPCS: 99283

== ENCOUNTER 2018-03-19 03:17 | Emergency (ER) | payer MEDICAID ==
[2018-03-19] MEDS ORDERED: HALOPERIDOL LACTATE INJ 5 MG/1 ML VIAL IM ONE (03:26)
[2018-03-19] MEDS ORDERED: HALOPERIDOL LACTATE INJ 5 MG/1 ML VIAL ONE (03:27)
--- NOTE | 2018-03-19 03:39 | ER Document Report ---
ED General - General Stated Complaint: PSYCH EVAL Time Seen by Provider: 03/19/18 03:19 Notes: Patient is a 47-year-old male who I am familiar with. He has history of s chizophrenia. Is not been taking his medications. Throughout the night the nurse informs me that he is walked into the ER waiting room several times and then left and then came back. Refuses to check in however now he is standing in the middle of the ER waiting room and staring at the glass and will not talk to anybody. I went and talked to the patient. I asked him if he is okay. He will not give me a good answer. When I talked to him and very intently at the window and will not break eye contact with the window. He is standing very still and almost catatonic in nature. He will sometimes get me some answers but they do not make good sense with the questions I am asking. Patient obviously is not been taking his psychiatric medications. It looks like it is my wrist with on Cogentin in the past. At this time I feel he is a danger to himself as he does not demonstrate a good linear thought process and is unable to give me a good plan for how he will care for himself for the next 24 hours. TRAVEL OUTSIDE OF THE [place] IN LAST 30 DAYS: No - Related Data Allergies/Adverse Reactions: No Known Allergies Allergy (Verified 03/19/18 04:00) Past Medical History - Social History Smoking Status: Former Smoker Frequency of alcohol use: None Drug Abuse: None Family History: Reviewed & Not Pertinent Renal/ Medical History: Denies: Hx Peritoneal Dialysis Psychiatric Medical History: Reports: Hx Schizophrenia - Immunizations Immunizations up to date: Yes Hx Diphtheria, Pertussis, Tetanus Vaccination: Yes Review of Systems - Review of Systems -: Yes ROS unobtainable due to patient's medical condition - Appropriate review of systems is difficult to obtain due to patient's AMS Physical Exam - Notes Notes: General Appearance: Well nourished, alert, cooperative, no acute distress, no obvious discomfort. Vitals: reviewed, See vital signs table. Head: no swelling or tenderness to the head Eyes: PERRL, EOMI, Conjuctiva clear Mouth: No decreasd moisture Lungs: No wheezing, No rales, No rhonci, No accessory muscle use, good air exchange bilaterally. Heart: Normal rate, Regular rythm, No murmur, no rub Abdomen: Normal BS, soft, No rigidity, No abdominal tenderness, No guarding, no rebound, no abdominal masses, no organomegaly Extremities: strength 5/5 in all extremities, good pulses in all extremities, no swelling or tenderness in the extremities, no edema. Skin: warm, dry, appropriate color, no rash Neuro:flat affect, moves all extremities on his own without discoordination. No focal neurologic deficits on exam. Cranial nerves II through XII are intact. Psychiatric: Patient standing in one place and staring off. Almost catatonic. Does not have good linear thought process. Course - Re-evaluation Re-evalutation: 03/19/18 04:52 Patient is medically stable for psychiatric evaluation. Patient did require some Haldol to make him more cooperative. He has been cooperative since. Dictation of this chart was performed using voice recognition software; therefore, there may be some unintended grammatical errors. - Laboratory Result Diagrams: 03/19/18 03:40 03/19/18 03:40 Laboratory results interpreted by me: 03/19/18 03:40 Glucose 132 H ALT 15 L Total Protein 8.3 H Salicylates < 1.0 L Acetaminophen < 10 L Discharge - Discharge Clinical Impression: Schizophrenia Qualifiers: Schizophrenia type: unspecified Qualified Code(s): F20.9 - Schizophrenia, unspecified Condition: Stable Disposition: PSYCH HOSP/UNIT
[2018-03-19 03:52] LABS: ABSOLUTE BASOPHILS # (AUTO) 0.1 10^3/uL (0.0-0.2); ABSOLUTE LYMPHOCYTES (AUTO) 1.8 10^3/uL (0.5-4.7); ABSOLUTE MONOCYTES (AUTO) 0.9 10^3/uL (0.1-1.4); ABSOLUTE NEUT (AUTO) 6.7 10^3/uL (1.7-8.2); BASOPHILS % (AUTO) 0.9 % (0-2); EOSINOPHILS % (AUTO) 0.4 % (0-6); HEMATOCRIT 45.5 % (37.9-51.0); HEMOGLOBIN 15.7 g/dL (13.5-17.0); LYMPHOCYTES % (AUTO) 18.6 % (13-45); MEAN CORPUSCULAR HEMOGLOBIN 32.1 pg (27.0-33.4); MEAN CORPUSCULAR HGB CONC 34.6 g/dL (32.0-36.0); MEAN CORPUSCULAR VOLUME 93 fl (80-97); MONOCYTES % (AUTO) 9.1 % (3-13); PLATELET COUNT 283 10^3/uL (150-450); RED BLOOD COUNT 4.91 10^6/uL (4.35-5.55); RED CELL DISTRIBUTION WIDTH 13.3 % (11.5-14.0); TOTAL CELLS COUNTED % (AUTO) 100 %; WHITE BLOOD COUNT 9.5 10^3/uL (4.0-10.5)
[2018-03-19 04:03] LABS: ALANINE AMINOTRANSFERASE 15 U/L (21-72); ALBUMIN 4.4 g/dL (3.5-5.0); ALKALINE PHOSPHATASE 93 U/L (38-126); ANION GAP 12 (5-19); ASPARTATE AMINO TRANSFERASE 31 U/L (17-59); BILIRUBIN,DIRECT 0.3 mg/dL (0.0-0.4); BILIRUBIN,TOTAL 0.8 mg/dL (0.2-1.3); BLOOD UREA NITROGEN 8 mg/dL (7-20); CALCIUM 9.8 mg/dL (8.4-10.2); CARBON DIOXIDE 24 mmol/L (22-30); CHLORIDE 104 mmol/L (98-107); GLUCOSE 132 mg/dL (75-110); SODIUM 139.5 mmol/L (137-145); TOTAL PROTEIN 8.3 g/dL (6.3-8.2)
[2018-03-19 04:05] LABS: ACETAMINOPHEN < 10 ug/mL (10-30); ALCOHOL < 10 mg/dL (NONE DETECTED); SALICYLATE < 1.0 mg/dL (2.0-20.0)
--- NOTE | 2018-03-19 07:51 | EKG REPORT ---
SEVERITY:- BORDERLINE ECG - SINUS RHYTHM PROBABLE LEFT ATRIAL ABNORMALITY BORDERLINE RIGHT AXIS DEVIATION BORDERLINE PROLONGED QT INTERVAL : Confirmed by: Ed Mcneil MD 19-Mar-2018 07:51:18
--- NOTE | 2018-03-19 09:24 | ER Document Report ---
Doctor's Note Notes: 03/19/18 09:23 Vitals reviewed. Nursing notes reviewed. Patient is out of restraints and asleep when I went in the room. He woke easily to verbal stimuli. He is in no acute distress. Patient denies any current complaints or overnight issues. Urinalysis is still pending however patient now feels like he can provide a sample. Final disposition pending psych consult.
[2018-03-19 09:44] LABS: APPEARANCE,URINE SLIGHTLY-CLOUDY; BILIRUBIN,URINE NEGATIVE (NEGATIVE); COLOR,URINE YELLOW; GLUCOSE, URINE NEGATIVE (NEGATIVE); KETONES,URINE TRACE mg/dL (NEGATIVE); LEUKOCYTE ESTERASE,URINE NEGATIVE (NEGATIVE); NITRITE,URINE NEGATIVE (NEGATIVE); PROTEIN,URINE 30 mg/dL (NEGATIVE); URINE SPECIFIC GRAVITY 1.025
[2018-03-19 10:01] LABS: URINE AMPHETAMINES SCREEN NEGATIVE; URINE BARBITURATES SCREEN NEGATIVE; URINE BENZODIAZEPINES SCREEN NEGATIVE; URINE COCAINE SCREEN NEGATIVE; URINE MARIJUANA (THC) SCREEN NEGATIVE; URINE METHADONE SCREEN NEGATIVE; URINE PHENCYCLIDINE SCREEN NEGATIVE
[2018-03-19] MEDS: HALOPERIDOL 5 MG TABLET PO SCH ×2 (13:12→17:18)
[2018-03-19] MEDS ORDERED: BENZTROPINE MESYLATE 1 MG TABLET PO SCH (13:15)
--- NOTE | 2018-03-19 14:08 | PSYCHOLOGICAL NOTE ---
Psych Note - Psych Note Date seen by psych provider: 03/19/18 Time seen by psych provider: 07:25 Psych Note: Reason for Consult: psychosis Patient is a 47-year-old male who I am familiar with. He has history of schizophrenia. Is not been taking his medications. Throughout the night the nurse informs me that he is walked into the ER waiting room several times and then left and then came back. Patient is unable to fully engage with clinician. He is observed wandering out of his room, presenting confused, and asking where he is at. Clinician explained he is in [facility] and attempted to guide the patient back to his room. The patient reports he did not know where his room was. Patient is orientated to person and needs assistance in being reoriented to place. He does not know why he is at the hospital. Patient confirms he has a diagnosis of schizophrenia but when asked if he has been taking his medications he responded with "oh." Ptaient is then noted to become agitated and almost fearful. He started to state something multiple times without finishing; "I can't...I can't...I Oh man...I am sorry...can't" and then fled back to his room that clinician was directing him into. Patient is alert and orientated to person. Eye contact was poor. Thought content is disorganized; unable to articulate complete thoughts other then asking where he is. Patient demonstrating acute psychosis which affects cognitive functioning i.e. attention, concentration, insight, judgment, and impulse control are poor. Medication recommendations from [facility]'s contracted psychiatrist Dr Alessia JOHNSON are as follows Haldol 5mg twice daily Cogentin 1mg daily Diagnosis: 295.90 (F20.9) Schizophrenia by History Impression/plan: Patient is recommended for continue under IVC. Patient appeared to be responding to internal stimuli with poor eye contact and disorganized thoughts. Patient is unable to articulate complete thoughts and has to be re-orientated repeatedly. Medication recommendations have been provided. Patient will be reevaluated. Dr. Camarena was consulted and the care management of this patient; attending physicians in agreement with recommendations and disposition.
[2018-03-20] MEDS ORDERED: LORAZEPAM INJ 2 MG/1 ML VIAL IM ONE (02:26)
[2018-03-20 07:03] VITALS: BP 133/87
--- NOTE | 2018-03-20 08:54 | ER Document Report ---
Doctor's Note Notes: This 47-year-old man with schizophrenia and poor insight has been evaluated and deemed appropriate for management [facility]. He has been medically cleared. Evaluated the patient. Is stable at this time for transport in law enforcement custody to [facility].
== END 2018-03-20 09:03 ==
LOC: ER 03:17
DX: F20.9 Schizophrenia, unspecified (principal); F29 Unspecified psychosis not due to a substance or known physiological condition
CPT/HCPCS: 93005; 99285; 96372; 36415; 80307 ×4; 85025; 80053; 81001; 93010; J3490 ×2; J1630; J2060

== ENCOUNTER 2018-03-27 05:00 | Emergency (ER) | payer OTHER, MEDICAID ==
[2018-03-27] MEDS ORDERED: NORMAL SALINE 1000 ML 1,000 ML IV ONE ×2 (05:22→06:36)
[2018-03-27] MEDS ORDERED: LORAZEPAM INJ 2 MG/1 ML VIAL IV ONE (05:22)
--- NOTE | 2018-03-27 05:24 | ER Document Report ---
ED Medical Screen (RME) - General Chief Complaint: Altered Mental Status Stated Complaint: ALTERED MENTAL STATUS Time Seen by Provider: 03/27/18 05:14 Notes: 47-year-old male comes by EMS with police escort after he was arrested tonight for trespassing on the hospital grounds. Patient was noted to be confused according to mom first and officer, because of his altered mental status he was brought to the emergency department. Patient states that he has not taken his mental health medications tonight, he denies recreational drugs, he denies any complaints and states he feels "fine". TRAVEL OUTSIDE OF THE [place] IN LAST 30 DAYS: No - Related Data Allergies/Adverse Reactions: No Known Allergies Allergy (Verified 03/19/18 04:00) Past Medical History - Past Medical History Cardiac Medical History: Reports: Hx Hypertension Renal/ Medical History: Denies: Hx Peritoneal Dialysis Psychiatric Medical History: Reports: Hx Schizophrenia - Immunizations Immunizations up to date: Yes Hx Diphtheria, Pertussis, Tetanus Vaccination: Yes Physical Exam - Vital signs Vitals: Temp Resp BP Pulse Ox 100.1 F 14 178/110 H 100 03/27/18 05:08 03/27/18 05:08 03/27/18 05:08 03/27/18 05:08 - Cardiovascular Rhythm: Regular, Tachycardia Heart sounds: Normal auscultation, S1 appreciated, S2 appreciated - Psychological Associated symptoms: Anxious. No: Aggressive, Agitated, Angry Course - Re-evaluation Re-evalutation: Patient tachycardic, hypertensive, slightly diaphoretic on my evaluation. However he is alert, conversational, he tells me the appropriate year, appropriate recent holiday, and his location. He is also cooperative. Workup pending, because of suspected substance abuse giving Ativan and IV fluids for hypotension, tachycardia. I have greeted and performed a rapid initial assessment of this patient. A comprehensive ED assessment and evaluation of the patient, analysis of test results and completion of the medical decision making process will be conducted by additional ED providers. - Vital Signs Vital signs: Temp Pulse Resp BP Pulse Ox 100.1 F 14 178/110 H 100 03/27/18 05:08 03/27/18 05:08 03/27/18 05:08 03/27/18 05:08
[2018-03-27 05:40] LABS: ABSOLUTE LYMPHOCYTES (AUTO) 0.6 10^3/uL (0.5-4.7); ABSOLUTE MONOCYTES (AUTO) 0.7 10^3/uL (0.1-1.4); ABSOLUTE NEUT (AUTO) 9.8 10^3/uL (1.7-8.2); BASOPHILS % (AUTO) 0.2 % (0-2); HEMATOCRIT 45.2 % (37.9-51.0); HEMOGLOBIN 15.2 g/dL (13.5-17.0); LYMPHOCYTES % (AUTO) 5.5 % (13-45); MEAN CORPUSCULAR HEMOGLOBIN 31.5 pg (27.0-33.4); MEAN CORPUSCULAR HGB CONC 33.6 g/dL (32.0-36.0); MEAN CORPUSCULAR VOLUME 94 fl (80-97); MONOCYTES % (AUTO) 6.7 % (3-13); PLATELET COUNT 279 10^3/uL (150-450); RED BLOOD COUNT 4.82 10^6/uL (4.35-5.55); RED CELL DISTRIBUTION WIDTH 13.5 % (11.5-14.0); SEGMENTED NEUTROPHILS % (AUTO) 87.6 % (42-78); TOTAL CELLS COUNTED % (AUTO) 100 %; WHITE BLOOD COUNT 11.2 10^3/uL (4.0-10.5)
[2018-03-27 05:41] LABS: ALANINE AMINOTRANSFERASE 38 U/L (21-72); ALBUMIN 4.7 g/dL (3.5-5.0); ALKALINE PHOSPHATASE 92 U/L (38-126); ANION GAP 17 (5-19); ASPARTATE AMINO TRANSFERASE 43 U/L (17-59); BILIRUBIN,DIRECT 0.3 mg/dL (0.0-0.4); BILIRUBIN,TOTAL 0.8 mg/dL (0.2-1.3); BLOOD UREA NITROGEN 8 mg/dL (7-20); CALCIUM 9.8 mg/dL (8.4-10.2); CARBON DIOXIDE 20 mmol/L (22-30); CHLORIDE 97 mmol/L (98-107); GLUCOSE 145 mg/dL (75-110); POTASSIUM 4.1 mmol/L (3.6-5.0); TOTAL PROTEIN 8.7 g/dL (6.3-8.2)
[2018-03-27 05:53] LABS: APPEARANCE,URINE CLEAR; BILIRUBIN,URINE NEGATIVE (NEGATIVE); COLOR,URINE YELLOW; GLUCOSE, URINE NEGATIVE (NEGATIVE); KETONES,URINE NEGATIVE (NEGATIVE); LEUKOCYTE ESTERASE,URINE NEGATIVE (NEGATIVE); NITRITE,URINE NEGATIVE (NEGATIVE); PROTEIN,URINE NEGATIVE (NEGATIVE); UROBILINOGEN,URINE NEGATIVE mg/dL (<2.0)
[2018-03-27 06:09] LABS: URINE AMPHETAMINES SCREEN NEGATIVE; URINE BARBITURATES SCREEN NEGATIVE; URINE BENZODIAZEPINES SCREEN NEGATIVE; URINE COCAINE SCREEN NEGATIVE; URINE MARIJUANA (THC) SCREEN NEGATIVE; URINE METHADONE SCREEN NEGATIVE; URINE PHENCYCLIDINE SCREEN NEGATIVE
[2018-03-27] MEDS ORDERED: HALOPERIDOL 5 MG TABLET PO ONE (06:48)
[2018-03-27] MEDS ORDERED: BENZTROPINE MESYLATE 1 MG TABLET PO ONE (06:48)
[2018-03-27 07:18] LABS: ACETAMINOPHEN < 10 ug/mL (10-30); ALCOHOL < 10 mg/dL (NONE DETECTED); SALICYLATE < 1.0 mg/dL (2.0-20.0)
--- NOTE | 2018-03-27 07:28 | ER Document Report ---
ED General - General Chief Complaint: Altered Mental Status Stated Complaint: ALTERED MENTAL STATUS Time Seen by Provider: 03/27/18 05:14 TRAVEL OUTSIDE OF THE [place] IN LAST 30 DAYS: No - HPI Patient complains to provider of: Altered mental state Notes: patient coming in for evaluation of altered mental state. Apparently patient Monika caught trespassing here in the hospital was taken to senior care then returned because of an altered mental state. Patient does have a history of s chizophrenia. Patient was seen triage provider prior to my evaluation the note is provided below 47-year-old male comes by EMS with police escort after he was arrested tonight for trespassing on the hospital grounds. Patient was noted to be confused according to mom first and officer, because of his altered mental status he was brought to the emergency department. Patient states that he has not taken his mental health medications tonight, he denies recreational drugs, he denies any complaints and states he feels "fine". According to the sign out received from she has provided patient with a no x3 however significant tachycardic patient did receive a 1 mg push of IV Ativan upon my evaluation patient looks to be resting comfortably heart rate vital signs have improved since his initial arrival. Patient will open his eyes to voice states otherwise he feels fine however does go back to sleep patient was initially just continue to monitor until he woke up from his Ativan. Patient was to be in no obvious distress patient voiced no complaints - Related Data Allergies/Adverse Reactions: No Known Allergies Allergy (Verified 03/19/18 04:00) Past Medical History - Social History Smoking Status: Unknown if Ever Smoked Family History: Reviewed & Not Pertinent Patient has suicidal ideation: No Patient has homicidal ideation: No - Past Medical History Cardiac Medical History: Reports: Hx Hypertension Renal/ Medical History: Denies: Hx Peritoneal Dialysis Psychiatric Medical History: Reports: Hx Schizophrenia - Immunizations Immunizations up to date: Yes Hx Diphtheria, Pertussis, Tetanus Vaccination: Yes Review of Systems - Review of Systems Constitutional: No symptoms reported EENT: No symptoms reported Cardiovascular: No symptoms reported Respiratory: No symptoms reported Gastrointestinal: No symptoms reported Genitourinary: No symptoms reported Male Genitourinary: No symptoms reported Musculoskeletal: No symptoms reported Skin: No symptoms reported Hematologic/Lymphatic: No symptoms reported Neurological/Psychological: No symptoms reported Physical Exam - Vital signs Vitals: Temp Resp BP Pulse Ox 100.1 F 14 178/110 H 100 03/27/18 05:08 03/27/18 05:08 03/27/18 05:08 03/27/18 05:08 Interpretation: Normal - General General appearance: Appears well, Alert - HEENT Head: Normocephalic, Atraumatic Eyes: Normal Pupils: PERRL - Respiratory Respiratory status: No respiratory distress Chest status: Nontender Breath sounds: Normal Chest palpation: Normal - Cardiovascular Rhythm: Regular Heart sounds: Normal auscultation Murmur: No - Abdominal Inspection: Normal Distension: No distension Bowel sounds: Normal Tenderness: Nontender Organomegaly: No organomegaly - Back Back: Normal, Nontender - Extremities General upper extremity: Normal inspection, Nontender, Normal color, Normal ROM, Normal temperature General lower extremity: Normal inspection, Nontender, Normal color, Normal ROM, Normal temperature, Normal weight bearing. No: Matthew's sign - Neurological Neuro grossly intact: Yes Cognition: Normal Orientation: AAOx4 [place] Coma Scale Eye Opening: Spontaneous [place] Coma Scale Verbal: Oriented [place] Coma Scale Motor: Obeys Commands [place] Coma Scale Total: 15 Speech: Normal Motor strength normal: LUE, RUE, LLE, RLE Sensory: Normal - Psychological Associated symptoms: Normal affect, Normal mood - Skin Skin Temperature: Warm Skin Moisture: Dry Skin Color: Normal Course - Re-evaluation Re-evalutation: 03/27/18 14:20 Laboratory studies did not itself to possible dehydration. Patient was given initial liter of fluids and then was evaluated by our psychiatric team. Patient was cleared from psych team with respect to stated patient was otherwise baseline. Problem reevaluation patient now more awake and alert speaking complete sentences also denies any complaints as on original presentation. Patient a no x3 no signs of any other mental state patient will be discharged in the custody of the service department to go to senior care patient was given his home medications - Vital Signs Vital signs: Temp Pulse Resp BP Pulse Ox 100.1 F 21 H 127/76 H 96 03/27/18 05:08 03/27/18 07:33 03/27/18 07:33 03/27/18 07:33 - Laboratory Result Diagrams: 03/27/18 04:35 03/27/18 04:35 Laboratory results interpreted by me: 03/27/18 03/27/18 04:35 04:35 WBC 11.2 H Seg Neutrophils % 87.6 H Lymphocytes % 5.5 L Absolute Neutrophils 9.8 H Sodium 134.0 L Chloride 97 L Carbon Dioxide 20 L Glucose 145 H Total Protein 8.7 H Salicylates < 1.0 L Acetaminophen < 10 L Discharge - Discharge Clinical Impression: Hx of schizophrenia, No problem, feared complaint unfounded Condition: Good Disposition: HOME, SELF-CARE Instructions: Schizophrenia ([facility]) Additional Instructions: Please make sure you eat and drink a healthy meal and/or diet your laboratory studies today did not show any signs of acute pathology or critical illness. Please make sure he continues take your medications as previously prescribed Return to the ER for any other concerns. He had been seen by her mental health psychiatric services and has been cleared
[2018-03-27 07:34] VITALS: BP 127/76
--- NOTE | 2018-03-27 15:08 | EKG REPORT ---
SEVERITY:- ABNORMAL ECG - SINUS TACHYCARDIA RIGHT AXIS DEVIATION NONSPECIFIC T ABNORMALITIES, INFERIOR LEADS : Confirmed by: Rancho Presley 27-Mar-2018 15:07:37
== END 2018-03-27 07:40 | disposition home or self-care (01) ==
LOC: ER 05:00
DX: Z71.1 Person with feared health complaint in whom no diagnosis is made (principal); F20.9 Schizophrenia, unspecified; R00.0 Tachycardia, unspecified; I10 Essential (primary) hypertension
CPT/HCPCS: 93005; 99285; 96361; 96374; 36415; 80307 ×4; 85025; 80053; 81001; 93010; J2060; J7030

== ENCOUNTER 2018-05-09 04:14 | Emergency (ER) | payer OTHER ==
[2018-05-09 04:29] VITALS: BP 141/85
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
== END 2018-05-09 05:33 | disposition left against medical advice (07) ==
LOC: ER 04:14
DX: Z53.21 Procedure and treatment not carried out due to patient leaving prior to being seen by health care provider (principal); M25.579 Pain in unspecified ankle and joints of unspecified foot

== ENCOUNTER 2018-05-09 21:30 | Emergency (ER) | payer OTHER ==
[2018-05-09 23:11] VITALS: BP 154/87
== END 2018-05-09 23:30 | disposition left against medical advice (07) ==
LOC: ER 21:30
DX: Z53.21 Procedure and treatment not carried out due to patient leaving prior to being seen by health care provider (principal); M25.571 Pain in right ankle and joints of right foot

== ENCOUNTER 2018-05-10 16:14 | Emergency (ER) | payer OTHER ==
--- NOTE | 2018-05-10 17:04 | RADIOLOGY REPORT (SQ) ---
EXAM DESCRIPTION: ANKLE RIGHT COMPLETE COMPLETED DATE/TIME: 05/10/2018 4:51 pm REASON FOR STUDY: Injury R ankle/ pain COMPARISON: 05/09/2018. NUMBER OF VIEWS: Three views. TECHNIQUE: AP, lateral, and oblique radiographic images acquired of the right ankle. LIMITATIONS: None. FINDINGS: MINERALIZATION: Normal. BONES: No acute fracture or dislocation. No worrisome bone lesions. JOINTS: No effusions. SOFT TISSUES: No soft tissue swelling. No foreign body. OTHER: No other significant finding. IMPRESSION: NEGATIVE STUDY OF THE RIGHT ANKLE. NO RADIOGRAPHIC EVIDENCE OF ACUTE INJURY. TECHNICAL DOCUMENTATION: JOB ID: [id number] SC-69 2010 [employer]- All Rights Reserved Reading location - IP/workstation name: [email or web address]
[2018-05-10] MEDS ORDERED: IBUPROFEN 600 MG TABLET PO ONE (17:20)
--- NOTE | 2018-05-10 17:35 | ER Document Report ---
ED General - General Chief Complaint: Ankle Injury Stated Complaint: ANKLE/FOOT INJURY Time Seen by Provider: 05/10/18 17:01 Primary Care Provider: CALLI LYNNE MD [ACTIVE STAFF] - Follow up in 3-5 days Notes: Patient is a 47-year-old male that presents to the emergency department for chief complaint of right ankle pain. Patient states that he thinks he injured his right ankle yesterday after leaving the mall, states he is applying for a job there, he did come to the emergency department yesterday and had x-rays, but left without being seen by provider, he came back today because he wanted to have it reevaluated because he is still having some pain mainly on the back portion of the Achilles tendon. He currently rates the pain as a 4 out of 10. He has been walking on it, denies any fall or significant injury but he thinks he twisted it when he was walking over a curb. Denies any numbness, tingling or weakness in the foot. No other complaints at this time. Past Medical History: Schizophrenia Past Surgical History: Denies recent or pertinent surgical history Social History: Admits to smoking cigarettes, denies alcohol or drug use. Family History: Reviewed and noncontributory for presenting illness Allergies: Reviewed, see documented allergy list. REVIEW OF SYSTEMS: Other than noted above, the 12 point review of systems was reviewed with the patient and were negative, all pertinent findings are included in the HPI. PHYSICAL EXAMINATION: Vital signs reviewed, nursing noted reviewed. GENERAL: Patient appears disheveled, but well-nourished HEAD: Atraumatic, normocephalic. EYES: Eyes appear normal, sclera anicteric, conjunctiva are normal. ENT: Moist mucous membranes. NECK: Normal range of motion, supple without lymphadenopathy LUNGS: Breath sounds clear to auscultation bilaterally and equal. No wheezes rales or rhonchi. HEART: Regular rate and rhythm without murmurs EXTREMITIES: Mild tenderness to palpation over the right Achilles tendon, without deformity, patient is able to dorsiflex and plantarflex with +5/5 strength, the Achilles tendon is intact. And reflexes intact. There is mild tenderness to palpation over the anterior talofibular ligament as well, without gross deformity of the ankle, no tenderness over the medial malleolus. The rest the patient's extremity exam is grossly unremarkable. and nontender, good range of motion, no pitting or edema. NEUROLOGICAL: No focal neurological deficits. Moves all extremities spontaneously Motor and sensory grossly intact on exam. PSYCH: Normal mood, normal affect. SKIN: Warm, Dry, normal turgor, no rashes or lesions noted on exposed skin TRAVEL OUTSIDE OF THE [place] IN LAST 30 DAYS: No - Related Data Allergies/Adverse Reactions: No Known Allergies Allergy (Verified 03/19/18 04:00) Past Medical History - Social History Smoking Status: Current Every Day Smoker Family History: Reviewed & Not Pertinent Patient has suicidal ideation: No Patient has homicidal ideation: No - Past Medical History Cardiac Medical History: Reports: Hx Hypertension Renal/ Medical History: Denies: Hx Peritoneal Dialysis Psychiatric Medical History: Reports: Hx Schizophrenia - Immunizations Immunizations up to date: Yes Hx Diphtheria, Pertussis, Tetanus Vaccination: Yes Physical Exam - Vital signs Vitals: Temp Pulse Resp BP Pulse Ox 98.6 F 108 H 16 141/88 H 99 05/10/18 16:20 05/10/18 16:20 05/10/18 16:20 05/10/18 16:20 05/10/18 16:20 Course - Re-evaluation Re-evalutation: Patient seen and examined, vital signs reviewed, on my exam evidence of Achilles tendon rupture. The x-rays obtained were negative for acute fracture or bony injury. Patient was given naproxen for his pain, and placed in ankle stirrup splint and advised to follow-up with the primary care. Patient was agreeable and discharged home. - Vital Signs Vital signs: Temp Pulse Resp BP Pulse Ox 98.6 F 91 18 134/80 H 100 05/10/18 16:20 05/10/18 17:49 05/10/18 17:49 05/10/18 17:49 05/10/18 17:49 Procedures - Immobilization Right Ankle Pre-Proc Neuro Vasc Exam: Normal Immobilizer type: Ankle stirrup Performed by: PCT Post-Proc Neuro Vasc Exam: Normal Discharge - Discharge Clinical Impression: Ankle pain, right Qualifiers: Chronicity: acute Qualified Code(s): M25.571 - Pain in right ankle and joints of right foot Condition: Stable Disposition: HOME, SELF-CARE Instructions: Soft Ankle Splint ([facility]), Sprained Ankle ([facility]) Prescriptions: Ibuprofen [Motrin 600 Mg Tablet] 600 mg PO TID #15 tablet Referrals: CALLI LYNNE MD [ACTIVE STAFF] - Follow up in 3-5 days
[2018-05-10 17:50] VITALS: BP 134/80
== END 2018-05-10 17:50 | disposition home or self-care (01) ==
LOC: ER 16:14
DX: M25.571 Pain in right ankle and joints of right foot (principal); S86.019A Strain of unspecified Achilles tendon, initial encounter; X58.XXXA Exposure to other specified factors, initial encounter; F17.210 Nicotine dependence, cigarettes, uncomplicated; I10 Essential (primary) hypertension
CPT/HCPCS: 99283; 73610; L1902; J3490

== ENCOUNTER 2018-05-11 02:45 | Emergency (ER) | payer MEDICAID, OTHER ==
[2018-05-11] MEDS ORDERED: BENZTROPINE MESYLATE 1 MG TABLET PO ONE (03:02)
[2018-05-11] MEDS ORDERED: HALOPERIDOL 5 MG TABLET PO ONE (03:02)
--- NOTE | 2018-05-11 03:08 | ER Document Report ---
ED General - General Chief Complaint: Ankle Pain Stated Complaint: ANKLE INJURY Time Seen by Provider: 05/11/18 02:53 Notes: Patient is a 47-year-old male with a history of schizophrenia that returns for the fourth time for the same complaint of left ankle pain. I asked him what he is here for, he states that his ankle feeling better right now but he "cannot get things right". He states that "everyone is trying to get in the way of me". He states he is homeless and he is not sure "what is going on with that". When I asked him to elaborate on who is getting his way he cannot tell me. When I asked if he is hearing voices he simply states "yes". He denies suicidal ideations or homicidal ideations. He will not tell me what the voices are saying. He states that he feels "fine" and he denies feeling sick. I asked if he is taking his medications for schizophrenia and he states that he has been unable to fill them and therefore he is off of them. He denies any other complaints. TRAVEL OUTSIDE OF THE [place] IN LAST 30 DAYS: No - Related Data Allergies/Adverse Reactions: No Known Allergies Allergy (Verified 03/19/18 04:00) Past Medical History - General Information source: Patient - Social History Smoking Status: Unknown if Ever Smoked Drug Abuse: None Lives with: Homeless Family History: Reviewed & Not Pertinent - Past Medical History Cardiac Medical History: Reports: Hx Hypertension Renal/ Medical History: Denies: Hx Peritoneal Dialysis Psychiatric Medical History: Reports: Hx Schizophrenia - Immunizations Immunizations up to date: Yes Hx Diphtheria, Pertussis, Tetanus Vaccination: Yes Review of Systems - Review of Systems Constitutional: No symptoms reported EENT: No symptoms reported Cardiovascular: No symptoms reported Respiratory: No symptoms reported Gastrointestinal: No symptoms reported Genitourinary: No symptoms reported Male Genitourinary: No symptoms reported Musculoskeletal: See HPI Skin: No symptoms reported Hematologic/Lymphatic: No symptoms reported Neurological/Psychological: See HPI Physical Exam - Vital signs Vitals: Temp Pulse Resp BP Pulse Ox 98.8 F 102 H 16 138/81 H 100 05/11/18 03:00 05/11/18 03:00 05/11/18 03:00 05/11/18 03:00 05/11/18 03:00 - Notes Notes: GENERAL: Alert. No acute distress. HEAD: Normocephalic, atraumatic. EYES: Pupils equal, round, and reactive to light. Extraocular movements intact. ENT: Oral mucosa moist, tongue midline. Oropharynx unremarkable. Airway patent. NECK: Full range of motion. Supple. Trachea midline. LUNGS: Clear to auscultation bilaterally, no wheezes, rales, or rhonchi. No respiratory distress. HEART: Regular rate and rhythm. No murmur ABDOMEN: Soft, non-tender. Non-distended. Bowel sounds present in all 4 quadrants. GENITOURINARY: Deferred EXTREMITIES: Moves all 4 extremities spontaneously. No edema, normal radial and dorsalis pedis pulses bilaterally. No cyanosis. BACK: no cervical, thoracic, lumbar midline tenderness. No saddle anesthesia, normal distal neurovascular exam. NEUROLOGICAL: Alert, oriented to person and place, somewhat confused in regards to time and events. [cranial nerves II through XII grossly intact]. PSYCH: Flat affect. Interrupted thought process. Poor eye contact. SKIN: Warm, dry, normal turgor. No rashes or lesions noted. Course - Re-evaluation Re-evalutation: This is patient's fourth visit for the same thing over the past 3 days. However he does not hematoma he has complaints of ankle pain. He is very random, difficult to the right, he does state that he is hearing voices, he denies SI or HI. He was off his medications with a history of schizophrenia. Appears to be a degree of psychosis involved. Patient will be medically cleared first, restarted on his psychiatric medications (review of records seem to show his most recent dosing with Haldol 5 mg twice a day and 1 mg Cogentin daily). Psychiatric consultation will be placed. I discussed this with patient and he does state agreement with this plan. Discussed with Dr. Wheeler. 05/11/18 03:35 Patient initially tried to leave, I was able to speak to him and he went back into the room, he then took his oral medications including Haldol and Cogentin without any difficulty at my request at bedside, however after this patient was noted to be wandering into another patient's room next door, chief information security officer as ked him to come back out. Patient turned around, grabbed hold of chief information security officer's arm and he would not let go. As result they both tripped and the chief information security officer and the patient went down to the ground. Patient placed in head lock by security, but patient would still not let go. Patient still would not like go despite being asked to do so, he had to be forcibly made to let go, he then attempted after grabbing hold of the security guards arm again and then he was starting to be pulled back into the room by security when he stated that he would go and he would agree and he would not fight. Patient then had to be placed on the bed by medical staff and security and he was placed in restraints because of the aggressive behavior and he was given additional sedation. Patient then calmed down. IVC paperwork completed, workup pending for medical clearance before mental health evaluation. 05/11/18 05:30 EKG does not show QT prolongation. CBC unremarkable, chemistry unremarkable, alcohol negative, urinalysis is still pending, however based on his evaluation and workup to this point regardless of the urinalysis and drug screen patient will be medically cleared for evaluation by mental health team. He has been reevaluated at bedside, he is sleeping peacefully, he will be removed from re straints if he continues to be calm and cooperative. Discussed with Dr. Wheeler. - Vital Signs Vital signs: Temp Pulse Resp BP Pulse Ox 98.8 F 102 H 16 138/81 H 100 05/11/18 03:00 05/11/18 03:00 05/11/18 03:00 05/11/18 03:00 05/11/18 03:00 - Laboratory Result Diagrams: 05/11/18 04:32 05/11/18 04:32 Laboratory results interpreted by me: 05/11/18 04:32 AST 64 H Salicylates < 1.0 L Acetaminophen < 10 L Discharge - Discharge Clinical Impression: Auditory hallucinations, Aggressive behavior of adult, Acute psychosis, Nonadherence to medication Schizophrenia Qualifiers: Schizophrenia type: unspecified Qualified Code(s): F20.9 - Schizophrenia, unspecified Condition: Stable Disposition: PSYCH HOSP/UNIT
[2018-05-11] MEDS ORDERED: LORAZEPAM INJ 2 MG/1 ML VIAL IM ONE (03:28)
[2018-05-11] MEDS ORDERED: HALOPERIDOL LACTATE INJ 5 MG/1 ML VIAL IM ONE (03:28)
[2018-05-11] MEDS ORDERED: HALOPERIDOL LACTATE INJ 5 MG/1 ML VIAL ONE (03:29)
[2018-05-11 04:48] LABS: ABSOLUTE EOSINOPHILS # (AUTO) 0.1 10^3/uL (0.0-0.6); ABSOLUTE LYMPHOCYTES (AUTO) 1.2 10^3/uL (0.5-4.7); ABSOLUTE MONOCYTES (AUTO) 0.7 10^3/uL (0.1-1.4); ABSOLUTE NEUT (AUTO) 4.6 10^3/uL (1.7-8.2); BASOPHILS % (AUTO) 0.6 % (0-2); EOSINOPHILS % (AUTO) 1.5 % (0-6); HEMATOCRIT 40.7 % (37.9-51.0); LYMPHOCYTES % (AUTO) 18.1 % (13-45); MEAN CORPUSCULAR HEMOGLOBIN 31.1 pg (27.0-33.4); MEAN CORPUSCULAR HGB CONC 34.5 g/dL (32.0-36.0); MEAN CORPUSCULAR VOLUME 90 fl (80-97); MONOCYTES % (AUTO) 10.6 % (3-13); PLATELET COUNT 239 10^3/uL (150-450); RED BLOOD COUNT 4.51 10^6/uL (4.35-5.55); RED CELL DISTRIBUTION WIDTH 13.2 % (11.5-14.0); SEGMENTED NEUTROPHILS % (AUTO) 69.2 % (42-78); TOTAL CELLS COUNTED % (AUTO) 100 %; WHITE BLOOD COUNT 6.7 10^3/uL (4.0-10.5)
[2018-05-11 05:01] LABS: ALANINE AMINOTRANSFERASE 37 U/L (21-72); ALBUMIN 3.6 g/dL (3.5-5.0); ALKALINE PHOSPHATASE 73 U/L (38-126); ANION GAP 7 (5-19); ASPARTATE AMINO TRANSFERASE 64 U/L (17-59); BILIRUBIN,TOTAL 0.5 mg/dL (0.2-1.3); BLOOD UREA NITROGEN 14 mg/dL (7-20); CALCIUM 9.2 mg/dL (8.4-10.2); CARBON DIOXIDE 27 mmol/L (22-30); CHLORIDE 104 mmol/L (98-107); GLUCOSE 109 mg/dL (75-110); POTASSIUM 4.2 mmol/L (3.6-5.0); SODIUM 138.1 mmol/L (137-145); TOTAL PROTEIN 6.5 g/dL (6.3-8.2)
[2018-05-11 05:02] LABS: ACETAMINOPHEN < 10 ug/mL (10-30); ALCOHOL < 10 mg/dL (NONE DETECTED); SALICYLATE < 1.0 mg/dL (2.0-20.0)
--- NOTE | 2018-05-11 06:58 | EKG REPORT ---
SEVERITY:- BORDERLINE ECG - SINUS TACHYCARDIA VENTRICULAR PREMATURE COMPLEX PROBABLE LEFT ATRIAL ABNORMALITY BORDERLINE RIGHT AXIS DEVIATION : Confirmed by: Rancho Presley 11-May-2018 06:57:49
--- NOTE | 2018-05-11 09:42 | ER Document Report ---
Addendum entered and electronically signed by RACHEL DIOP LPCA 05/12/18 12:44: Discharge - Discharge Clinical Impression: Auditory hallucinations, Aggressive behavior of adult, Acute psychosis, Nonadh erence to medication Schizophrenia Qualifiers: Schizophrenia type: unspecified Qualified Code(s): F20.9 - Schizophrenia, un specified Condition: Stable Disposition: HOME, SELF-CARE Additional Instructions: You have been evaluated and assessed at [facility] Emergency Department by both the medical and behavioral health teams after presenting for auditory hallucinations and aggression and are now deemed appropriate for discharge. While in the ED, you received an initial medical screening, lab work, EKG, medications, direct staff observation, clinical evaluation, physician assessment, and outpatient resources. You were cleared from both services and record review revealed a history of similar visits to the ED due to medication non-compliance and self-medicating. Mobile crisis resources were provided to you for when these situations arise. You are encouraged to develop positive coping skills through outpatient counseling. You are also encouraged to to follow up with your outpatient mental health provider at [facility] on Friday at 1300 and maintain compliance with your prescribed medication. Schizophrenia Schizophrenia is a chemical disorder that affects how the brain functions. The exact cause is unknown, but it tends to run in families. It is NOT caused by emotional trauma. Schizophrenia causes disordered thinking, including unusual beliefs and inability to "process" happenings around the patient. Patients with schizophrenia benefit greatly from medicine. These medicines are called antipsychotics. Never stop the medicine without the doctor's approval. Counselling may help the patient deal with his disease. Schizophrenics require a very ordered environment. Stresses and sudden changes may bring out symptoms. Drugs and alcohol abuse may become problems. Contact the counsellor or crisis line if there are thoughts of suicide or of harming others, or if you become aware of unusual thoughts or beliefs Referrals: [facility] [Provider Group] - Follow up as needed Course - Vital Signs Vital signs: Temp Pulse Resp BP Pulse Ox 98.2 F 99 16 123/80 98 05/12/18 06:00 05/12/18 06:00 05/12/18 06:00 05/12/18 06:00 05/12/18 06:00 - Laboratory Result Diagrams: 05/11/18 04:32 05/11/18 04:32 Laboratory results interpreted by me: 05/11/18 05/11/18 04:32 10:40 AST 64 H Urine Ascorbic Acid 20 H Salicylates < 1.0 L Acetaminophen < 10 L Physical Exam - Vital signs Vitals: Temp Pulse Resp BP Pulse Ox 98.8 F 102 H 16 138/81 H 100 05/11/18 03:00 05/11/18 03:00 05/11/18 03:00 05/11/18 03:00 05/11/18 03:00 Original Note: Doctor's Note Notes: 05/11/18 09:41 Patient seen and evaluated. 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 Patient does not wish to speak any further with me stating that he is tired and would like to go back to sleep. He does seem to be disoriented related to his noncompliance with schizophrenic medications. He is still awaiting psych evaluation. He is otherwise medically cleared.
[2018-05-11 11:41] LABS: APPEARANCE,URINE CLEAR; BILIRUBIN,URINE NEGATIVE (NEGATIVE); COLOR,URINE YELLOW; GLUCOSE, URINE NEGATIVE (NEGATIVE); KETONES,URINE NEGATIVE (NEGATIVE); LEUKOCYTE ESTERASE,URINE NEGATIVE (NEGATIVE); NITRITE,URINE NEGATIVE (NEGATIVE); PROTEIN,URINE NEGATIVE (NEGATIVE); URINE SPECIFIC GRAVITY 1.016; UROBILINOGEN,URINE NEGATIVE mg/dL (<2.0)
[2018-05-11 11:55] LABS: URINE AMPHETAMINES SCREEN NEGATIVE; URINE BARBITURATES SCREEN NEGATIVE; URINE BENZODIAZEPINES SCREEN NEGATIVE; URINE COCAINE SCREEN NEGATIVE; URINE MARIJUANA (THC) SCREEN NEGATIVE; URINE METHADONE SCREEN NEGATIVE; URINE PHENCYCLIDINE SCREEN NEGATIVE
--- NOTE | 2018-05-11 15:45 | PSYCHOLOGICAL NOTE ---
Psych Note - Psych Note Date seen by psych provider: 05/11/18 Time seen by psych provider: 08:30 Psych Note: Reason for Consult: auditory hallucinations and aggression first attempt -830 Patient unable or unwilling to awaken Patient seen at 1000 Patient discloses that [place] however is not been there in a long time. He confirms he has been off his medication because he was not able to fill it. Patient reports he has been out of correction "a while now" and does not have anywhere to live. When is explained that [facility] staff would assist the patient in getting back on Haldol, he reports that he does not want to take Haldol. Clinician asked why, as this is been his home medication. He reports that he doesn't like the side effects. When asked what his side effects are he reports "I have not research that yet." Patient requests to use the bathroom. Clinician escorted the patient to the restrooms to show location. Patient closed the bathroom door and started to walk to the exit of the ED. Clinician was able to re-direct the patient. When he reported he did not have to use the bathroom, he calmly walked back to his room. Patient was alert and oriented to person, place and situation. Mood was euthymic with flat affect. He denied suicidal and homicidal ideation. He did not appear to be responding to internal stimuli as evidenced by fair eye contact, answering questions appropriately when addressed, staying on topic or allowing for r edirection, carrying on dialogue conversation and being engaged in evaluation and treatment planning. Thought processes were overall organized and linear. Conversational speech was within normal limits for rate, tone and prosody. Intellectual abilities are estimated to be average. attention and concentration and fair to poor. Insight, judgment and impluse control are historically poor as evidence by frequent incarcerations and substance abuse. No medication recommendations at this time Diagnosis: 295.90 (F20.9) Schizophrenia by History Polysubstance History (not current, negative UDS) Alcohol Cannabis Cocaine Impression/plan: There is significant concern the patient is demonstrating behaviours in attempt to obtain secondary gain. Patient demonstrated full cognitive awareness with no signs of psychosis (ie he had a organized and linear conversation with attending physician moments before acting out aggressively as documented by the attending physician when talking with clinician). Patient does demonstrate some confusion at times; however, it is unclear at this time if this is from not taking his medications or substance abuse. It is noted the patient's presentation frequently includes "confusion." Patient has a history of noncompliant with medications and is presenting very close to his baseline. Patient will be re-evaluated. Dr. Camarena was consulted and care management this patient; attending physicians in agreement with recommendations and disposition.
[2018-05-11] MEDS ORDERED: ZIPRASIDONE MESYLATE INJ/PF 20 MG SDV IM ONE (21:49)
[2018-05-12] MEDS ORDERED: LORAZEPAM INJ 2 MG/1 ML VIAL IM ONE (00:13)
[2018-05-12] MEDS ORDERED: LORAZEPAM INJ 2 MG/1 ML VIAL ONE (00:14)
--- NOTE | 2018-05-12 00:15 | ER Document Report ---
Doctor's Note Notes: 05/12/18 00:14 Patient became agitated and apparently became aggressive towards acute regards. Security guards are now holding onto the floor. Patient just recently got Geodon. I have ordered an additional 3 mg of Ativan to help calm him down so that we can get him back in the bed.
[2018-05-12] MEDS ORDERED: HALOPERIDOL DECANOATE INJ 100 MG/1 ML VIAL IM ONE (09:26)
--- NOTE | 2018-05-12 09:47 | ER Document Report ---
Doctor's Note Notes: 05/12/18 09:46 I have reviewed the patient's chart, labs, provider notes and seen the patient. This is a 47-year-old man with a history of schizophrenia, known medical noncompliance who had presented with aggressive behavior. He has been evaluated by psychology team and while he does have underlying psychiatric issues, he is felt to be acting out for secondary gain. Currently, the patient is cooperative, calm and in no distress. He is ambulating around the room and to the bathroom. We will continue to observe. Given his noncompliance with medicines, we will give him Haldol decanoate shot. 05/12/18 13:08 Patient has been stable. The plan is for him to follow[place]up at [facility]
--- NOTE | 2018-05-12 12:42 | PSYCHOLOGICAL NOTE ---
Psych Note - Psych Note Date seen by psych provider: 05/12/18 Time seen by psych provider: 07:30 Psych Note: Reason for consult:AH/Aggression Contact Permissions:None Patient is a 47 presenting to the ED for untreated schizophrenia. Patient is awake upon arrival and has been observed to be calm and cooperative all morning/is eating/and reports wanting to take a shower. He denies SI, HI, and AV/H. Patient admits that he has not been taking medication and questions whether he actually has schizophrenia relaying that he hit his head as a child. He asked questions about his medications and plans for follow up relaying that he would prefer to stay with [facility] as his provider. He verbalizes that he will follow up with medication management of his sx's and discuss possibility of neurological referral with his OP provider. Patient agrees to decoanate shot and receives it cooperatively during the evaluation. He recalls the nurse and that they "got along good". Patient discloses the meaning of his name and that he has an older brother but does not like to speak about his family feeling this is a private subject. He continues to share that he doesn't want his sx's and medical information "spread around town" and was assured that his private medical information would remain private. He asked how to obtain his medical records and received information about the process for requesting. Patient is alert and oriented x 4. Mood is euthymic "pretty good" mood congruent affect. Patient denies SI, HI, and AV/H, does not appear to be responding to internal stimuli as eye contact was well maintained and questions/behaviors were appropriate, and no delusions were noted. Conversational speech was WNL for rate, tone, and prosody. Eye contact was well maintained. Thought processes were linear, organized, and rational. Intellectual abilities were estimated within the average range. Attention/concentration was WNL while, insight, judgment, and impulse control were fair. Diagnosis: 295.90 (F20.9) Schizophrenia by History Polysubstance History (not current, negative UDS) Alcohol Cannabis Cocaine Medication recommendations as per psychiatric provider, Dr. Aggarwal are as follows: Haldol Decoanate 100mg IM Impression/Plan: Patient is psychiatrically clear from acute psychiatric services as there is no risk of harm to self or others aeb patient denies SI, HI, and AV/H, does not appear to be responding to internal stimuli and no delusions were noted. Patient is a 47 yo male with hx of medication non-compliance for schizophrenia dx. He agrees to take medication while in the ED and verbalizes intent to continue doing so with his preferred provider at [facility]. Patient is recommended to follow up with his outpatient provider for medication management and was provided with psychoeducation on the importance of medication compliance and did verbalize understanding. Plan is to discharge with appointment at [facility] on Friday at 1300 after medication stabilization today on Haldol decoanate. Patient verbalized intent to follow up and asked appropriate questions such as how soon he could get in. Patient was provided with contact information for [facility] and educated on how to use the service. Consulted Dr. Camarena in the care and treatment of this patient and ED physician who is in agreement with disposition and recommendation.
[2018-05-12 13:40] VITALS: BP 129/77
== END 2018-05-12 13:42 | disposition home or self-care (01) ==
LOC: ER 02:45
DX: F20.9 Schizophrenia, unspecified (principal); Z91.14 Patient's other noncompliance with medication regimen; M25.572 Pain in left ankle and joints of left foot; I10 Essential (primary) hypertension
CPT/HCPCS: 93005; 99285; 96372; 36415; 80307 ×4; 85025; 80053; 81001; 93010; J3490 ×2; J1631; J1630; J2060 ×2; J3486

== ENCOUNTER 2018-05-14 23:44 | Emergency (ER) | payer MEDICAID ==
[2018-05-14 23:59] VITALS: BP 150/92
[2018-05-15] MEDS ORDERED: ACETAMINOPHEN 325 MG TABLET PO ONE (00:30)
--- NOTE | 2018-05-15 00:32 | ER Document Report ---
ED General - General Chief Complaint: Ankle Pain Stated Complaint: ANKLE INJURY Time Seen by Provider: 05/15/18 00:11 Notes: Patient is a 47-year-old male. He presents with complaint of right ankle pain. He has chronic right ankle pain. Is homeless. He walks a lot. He takes his foot he actually shows me where he is hurting in it is mostly over the Achilles tendon. He actually has a pressure ulcer over the Achilles tendon that goes just into the subcutaneous tissue. This is the only location where it hurts when I palpate his ankle and foot. She had an x-ray here 5 days ago. X-ray was normal. He has no other complaints at this time. He was recently seen because of his schizophrenia. He was given a action of long-acting Haldol. Currently he is very appropriate and answers all questions appropriately and denies any hallucinations or concerns otherwise. TRAVEL OUTSIDE OF THE [place] IN LAST 30 DAYS: No - Related Data Allergies/Adverse Reactions: No Known Allergies Allergy (Verified 03/19/18 04:00) Past Medical History - Social History Smoking Status: Never Smoker Frequency of alcohol use: None Drug Abuse: None Family History: Reviewed & Not Pertinent - Past Medical History Cardiac Medical History: Reports: Hx Hypertension Renal/ Medical History: Denies: Hx Peritoneal Dialysis Psychiatric Medical History: Reports: Hx Schizophrenia - Immunizations Immunizations up to date: Yes Hx Diphtheria, Pertussis, Tetanus Vaccination: Yes Review of Systems - Review of Systems Notes: My Normal Review Basic REVIEW OF SYSTEMS: CONSTITUTIONAL : Denies fever, chills, or sweats. Denies recent illness. MUSCULOSKELETAL: Pain in right ankle. SKIN: Denies rash or skin lesions. NEUROLOGICAL: Denies sensory or motor loss. PSYCHIATRIC: Hallucinations. ALL OTHER SYSTEMS REVIEWED AND NEGATIVE. Physical Exam - Vital signs Vitals: Temp Pulse BP Pulse Ox 98.7 F 116 H 150/92 H 98 05/14/18 23:56 05/14/18 23:56 05/14/18 23:56 05/14/18 23:56 - Notes Notes: General Appearance: Well nourished, alert, cooperative, no acute distress, no obvious discomfort. Vitals: reviewed, See vital signs table. Extremities: small stage 2 pressure ulcer over right Achilles heel. Remainder of ankle is nontender. No surrounding redness or swelling. Signs of infection. Skin: warm, dry, appropriate color, no rash Neuro: speech clear, oriented x 3, normal affect, responds appropriately to questions. Course - Re-evaluation Re-evalutation: 05/15/18 00:[address] a padded dressing over the patient's ulcer. I encouraged him to try to change it every day if not at least once every 2 days. Informed him to fol low-up with a doctor. If you cannot follow-up with that he can return to the ER we can reevaluate him. Patient's mood is very good. He is showing no signs of schizophrenic break. It appears that long-acting Haldol is working well for him. He is very appropriate on exam. Patient will be discharged home but strongly encouraged to return to the office any redness or swelling or signs of infection. Patient agrees with plan and will be discharged home. Dictation of this chart was performed using voice recognition software; therefore, there may be some unintended grammatical errors. - Vital Signs Vital signs: Temp Pulse Resp BP Pulse Ox 98.7 F 116 H 150/92 H 98 05/14/18 23:56 05/14/18 23:56 05/14/18 23:56 05/14/18 23:56 Discharge - Discharge Clinical Impression: Ankle pain, right Qualifiers: Chronicity: chronic Qualified Code(s): M25.571 - Pain in right ankle and joints of right foot Skin ulcer Qualifiers: Non-pressure ulcer stage: unspecified non-pressure ulcer stage Qualified Code(s): L98.499 - Non-pressure chronic ulcer of skin of other sites with unspecified severity Condition: Good Disposition: HOME, SELF-CARE Additional Instructions: Please change the dressing on the skin ulcer on your right ankle everyday if possible. please return to the ER immediately if you develop any redness or swelling over the ulceration, increasing in size of the ulceration, or if you have any further concerns. [facility] 1-2 weeks. If unable to follow up with them you can return to the ER and we will reevaluate you.
== END 2018-05-15 01:53 | disposition home or self-care (01) ==
LOC: ER 23:44
DX: G89.29 Other chronic pain (principal); M25.571 Pain in right ankle and joints of right foot; L89.612 Pressure ulcer of right heel, stage 2; I10 Essential (primary) hypertension; R44.3 Hallucinations, unspecified; Z59.0 Homelessness
CPT/HCPCS: 99283; J3490

== ENCOUNTER 2018-05-15 17:38 | Emergency (ER) | payer OTHER ==
[2018-05-15] MEDS ORDERED: NORMAL SALINE 1000 ML 1,000 ML IV ONE (18:08)
[2018-05-15] MEDS ORDERED: LORAZEPAM INJ 2 MG/1 ML VIAL IV ONE (18:09)
[2018-05-15 18:48] LABS: ABSOLUTE BASOPHILS # (AUTO) 0.1 10^3/uL (0.0-0.2); ABSOLUTE EOSINOPHILS # (AUTO) 0.1 10^3/uL (0.0-0.6); ABSOLUTE MONOCYTES (AUTO) 0.9 10^3/uL (0.1-1.4); ABSOLUTE NEUT (AUTO) 5.7 10^3/uL (1.7-8.2); BASOPHILS % (AUTO) 0.9 % (0-2); EOSINOPHILS % (AUTO) 0.8 % (0-6); HEMATOCRIT 41.4 % (37.9-51.0); HEMOGLOBIN 14.1 g/dL (13.5-17.0); LYMPHOCYTES % (AUTO) 12.6 % (13-45); MEAN CORPUSCULAR HEMOGLOBIN 31.2 pg (27.0-33.4); MEAN CORPUSCULAR VOLUME 92 fl (80-97); MONOCYTES % (AUTO) 11.9 % (3-13); PLATELET COUNT 282 10^3/uL (150-450); RED BLOOD COUNT 4.51 10^6/uL (4.35-5.55); RED CELL DISTRIBUTION WIDTH 13.5 % (11.5-14.0); SEGMENTED NEUTROPHILS % (AUTO) 73.8 % (42-78); TOTAL CELLS COUNTED % (AUTO) 100 %; WHITE BLOOD COUNT 7.7 10^3/uL (4.0-10.5)
[2018-05-15 19:06] LABS: ALANINE AMINOTRANSFERASE 24 U/L (21-72); ALKALINE PHOSPHATASE 77 U/L (38-126); ANION GAP 11 (5-19); ASPARTATE AMINO TRANSFERASE 33 U/L (17-59); BILIRUBIN,DIRECT 0.2 mg/dL (0.0-0.4); BILIRUBIN,TOTAL 0.5 mg/dL (0.2-1.3); BLOOD UREA NITROGEN 10 mg/dL (7-20); CALCIUM 9.1 mg/dL (8.4-10.2); CARBON DIOXIDE 25 mmol/L (22-30); CHLORIDE 103 mmol/L (98-107); CREATINE KINASE 484 U/L (55-170); GLUCOSE 123 mg/dL (75-110); POTASSIUM 4.2 mmol/L (3.6-5.0); SODIUM 138.6 mmol/L (137-145); TOTAL PROTEIN 7.3 g/dL (6.3-8.2); URINE AMPHETAMINES SCREEN NEGATIVE; URINE BARBITURATES SCREEN NEGATIVE; URINE BENZODIAZEPINES SCREEN NEGATIVE; URINE COCAINE SCREEN NEGATIVE; URINE MARIJUANA (THC) SCREEN NEGATIVE; URINE METHADONE SCREEN NEGATIVE; URINE PHENCYCLIDINE SCREEN NEGATIVE
[2018-05-15 19:07] LABS: ACETAMINOPHEN < 10 ug/mL (10-30); ALCOHOL < 10 mg/dL (NONE DETECTED); SALICYLATE < 1.0 mg/dL (2.0-20.0)
[2018-05-15 19:23] LABS: AMORPHOUS SEDIMENT,URINE TRACE /HPF; APPEARANCE,URINE CLOUDY; BILIRUBIN,URINE NEGATIVE (NEGATIVE); COLOR,URINE YELLOW; GLUCOSE, URINE NEGATIVE (NEGATIVE); KETONES,URINE NEGATIVE (NEGATIVE); LEUKOCYTE ESTERASE,URINE NEGATIVE (NEGATIVE); NITRITE,URINE NEGATIVE (NEGATIVE); PROTEIN,URINE NEGATIVE (NEGATIVE); URINE SPECIFIC GRAVITY 1.017
--- NOTE | 2018-05-15 19:29 | RADIOLOGY REPORT (SQ) ---
EXAM DESCRIPTION: CHEST SINGLE VIEW COMPLETED DATE/TIME: 05/15/2018 7:13 pm REASON FOR STUDY: Altered mental status COMPARISON: AP chest 03/12/2018 EXAM PARAMETERS: NUMBER OF VIEWS: One view. TECHNIQUE: Single frontal radiographic view of the chest acquired. RADIATION DOSE: NA LIMITATIONS: None. FINDINGS: LUNGS AND PLEURA: No opacities, masses or pneumothorax. No pleural effusion. MEDIASTINUM AND HILAR STRUCTURES: No masses. Contour normal. HEART AND VASCULAR STRUCTURES: Heart normal in size. Normal vasculature. BONES: No acute findings. HARDWARE: None in the chest. OTHER: No other significant finding. IMPRESSION: NO ACUTE RADIOGRAPHIC FINDING IN THE CHEST. TECHNICAL DOCUMENTATION: JOB ID: [id number] [employer]- All Rights Reserved Reading location - IP/workstation name: [email or web address]
--- NOTE | 2018-05-15 21:17 | ER Document Report ---
ED General - General Chief Complaint: Altered Mental Status Stated Complaint: ALTERED MENTAL STATUS Time Seen by Provider: 05/15/18 17:52 TRAVEL OUTSIDE OF THE [place] IN LAST 30 DAYS: No - HPI Notes: Patient presents to the emergency department for evaluation. He is schizophrenic and is a poor historian. I am told that he is "acting strangely." He is known to the department and is usually well communicative. The patient denies any pain at this time. He cannot give me any history about his day. - Related Data Allergies/Adverse Reactions: No Known Allergies Allergy (Verified 03/19/18 04:00) Past Medical History - General Information source: Patient, Law Enforcement, Emergency Med Personnel - Social History Smoking Status: Unknown if Ever Smoked Chew tobacco use (# tins/day): No Frequency of alcohol use: None Drug Abuse: None Family History: Reviewed & Not Pertinent Patient has suicidal ideation: No Patient has homicidal ideation: No - Past Medical History Cardiac Medical History: Reports: Hx Hypertension Renal/ Medical History: Denies: Hx Peritoneal Dialysis Psychiatric Medical History: Reports: Hx Schizophrenia - Immunizations Immunizations up to date: Yes Hx Diphtheria, Pertussis, Tetanus Vaccination: Yes Review of Systems - Review of Systems -: Yes ROS unobtainable due to patient's medical condition Physical Exam - Vital signs Vitals: Resp Pulse Ox 32 H 94 05/15/18 18:02 05/15/18 18:02 Notes: Initially patient is tachycardic with a heart rate in the 120, tachypneic with respiratory rate of 24. SPO2 97% on room air. Mildly hypertensive. - Notes Notes: Patient is mildly agitated, not cooperative. He is repeatedly trying to get up out of the bed. Head is normocephalic and atraumatic. Pupils are equal and round, 4 mm, reactive to light. Oral mucosa is moist. Neck is supple without apparent meningismus. Heart is tachycardic with normal S1-S2. Lungs are clear to auscultation bilaterally. Abdomen is soft, nontender, normoactive bowel sounds. Patient is disoriented, having difficulty answering questions. He is moving all 4 extremities spontaneously. No gross facial asymmetry. There is a 1 cm oval-shaped ulceration of the skin over the right Achilles tendon. There is no surrounding erythema or induration. No fluctuance. Course - Re-evaluation Re-evalutation: 05/15/18 21:14 Patient presents emergency department for evaluation via EMS. Initially EMS reported to us that his blood sugar was a proximally 140. He was given Gatorade here and became more responsive. He is now alert and oriented. He remained mi ldly agitated, stating that he did not want to stay here in the department. Laboratory investigations were unremarkable. EKG did not show any acute changes. Patient was given IV fluids. His heart rate came down to 95. His respirations normalized. Tox screen was negative. Urinalysis was negative. Blood work was largely unremarkable. The patient did not want to stay here. He was lucid, does not reveal any signs of acute psychosis. He understands I do not have a clear etiology as to what happened. Certainly he may have in fact been hypoglycemic, as he responded well to the Gatorade, but I do not have any documented low blood sugars. He still would like to be discharged. He is to f ollow-up with primary care, return to emergency department with worsening or new concerning symptoms. 05/15/18 21:18 - Vital Signs Vital signs: Temp Pulse Resp BP Pulse Ox 97.8 F 25 H 125/71 100 05/15/18 19:01 05/15/18 19:01 05/15/18 19:01 05/15/18 19:01 - Laboratory Result Diagrams: 05/15/18 18:34 05/15/18 18:34 Laboratory results interpreted by me: 05/15/18 05/15/18 05/15/18 18:34 18:34 18:34 Lymphocytes % 12.6 L Glucose 123 H POC Glucose Creatine Kinase 484 H Urine Urobilinogen 4.0 H Salicylates < 1.0 L Acetaminophen < 10 L 05/15/18 19:12 Lymphocytes % Glucose POC Glucose 260 H Creatine Kinase Urine Urobilinogen Salicylates Acetaminophen - Diagnostic Test Radiology reviewed: Reports reviewed - EKG Interpretation by Me Additional EKG results interpreted by me: 05/15/18 21:17 Sinus tachycardia with a rate of 115 bpm. Normal axis and intervals. No acute ST changes concerning for ischemia or infarction. Discharge - Discharge Clinical Impression: Altered mental status, unspecified Additional Instructions: I do not have a clear reason for your symptoms this evening. If you develop worsening or new concerning terms of any sort, return immediately to the emergency department for reevaluation.
--- NOTE | 2018-05-15 21:21 | EKG REPORT ---
SEVERITY:- ABNORMAL ECG - SINUS TACHYCARDIA NONSPECIFIC T ABNORMALITIES, INFERIOR LEADS : Confirmed by: Salmia Maldonado MD 15-May-2018 21:20:26
[2018-05-15 22:09] VITALS: BP 143/55
== END 2018-05-15 21:35 | disposition home or self-care (01) ==
LOC: ER 17:38
DX: R41.0 Disorientation, unspecified (principal); F20.9 Schizophrenia, unspecified; R00.0 Tachycardia, unspecified; I10 Essential (primary) hypertension; L97.319 Non-pressure chronic ulcer of right ankle with unspecified severity
CPT/HCPCS: 93005; 99285; 96360; 36415; 82962; 80307 ×4; 82550; 85025; 80053; 81001; 71045; 93010; J7030

== ENCOUNTER 2018-05-22 21:26 | Emergency (ER) | payer MEDICAID, OTHER ==
--- NOTE | 2018-05-22 23:22 | ER Document Report ---
ED General - General Chief Complaint: Psych Problem Stated Complaint: PSYCH Time Seen by Provider: 05/22/18 22:05 Cannot obtain history due to: Uncooperative Notes: Patient is a 47-year-old male with a past medical history of polysubstance abuse, currently homeless, presents complaining of needing rehab for methamphetamine after using it once. The patient states that he has been unable to sleep although is notably sleeping when I walk into the room. He denies other medical complaints. Has not trying to treat his symptoms. Nothing worsens his symptoms. Does not have a primary care physician. Has not attempt ed to engage with any psychiatric resources. Is asking how [facility]. TRAVEL OUTSIDE OF THE [place] IN LAST 30 DAYS: No - Related Data Allergies/Adverse Reactions: No Known Allergies Allergy (Verified 05/22/18 21:54) Past Medical History - General Information source: Patient - Social History Smoking Status: Current Every Day Smoker Frequency of alcohol use: Rare Drug Abuse: Other Lives with: Homeless Family History: Reviewed & Not Pertinent Patient has suicidal ideation: No Patient has homicidal ideation: No - Past Medical History Cardiac Medical History: Reports: Hx Hypertension Renal/ Medical History: Denies: Hx Peritoneal Dialysis Psychiatric Medical History: Reports: Hx Schizophrenia - Immunizations Immunizations up to date: Yes Hx Diphtheria, Pertussis, Tetanus Vaccination: Yes Review of Systems - Review of Systems Notes: Constitutional: Negative for fever. HENT: Negative for sore throat. Eyes: Negative for visual changes. Cardiovascular: Negative for chest pain. Respiratory: Negative for shortness of breath. Gastrointestinal: Negative for abdominal pain, vomiting or diarrhea. Genitourinary: Negative for dysuria. Musculoskeletal: Negative for back pain. Skin: Negative for rash. Neurological: Negative for headaches, weakness or numbness. 10 point ROS negative except as marked above and in HPI. Physical Exam - Vital signs Vitals: Temp Pulse Resp BP Pulse Ox 98.2 F 116 H 16 149/100 H 97 05/22/18 22:00 05/22/18 22:00 05/22/18 22:00 05/22/18 22:00 05/22/18 22:00 Interpretation: Hypertensive, Tachycardic Notes: PHYSICAL EXAMINATION: GENERAL: Well-appearing, well-nourished and in no acute distress. HEAD: Atraumatic, normocephalic. EYES: Pupils equal round and reactive to light, extraocular movements intact, sclera anicteric, conjunctiva are normal. ENT: nares patent, oropharynx clear without exudates. Moist mucous membranes. NECK: Normal range of motion, supple without lymphadenopathy LUNGS: Breath sounds clear to auscultation bilaterally and equal. No wheezes rales or rhonchi. HEART: Regular rate and rhythm without murmurs ABDOMEN: Soft, nontender, normoactive bowel sounds. No guarding, no rebound. No masses appreciated. EXTREMITIES: Normal range of motion, no pitting or edema. No cyanosis. NEUROLOGICAL: No focal neurological deficits. Moves all extremities spontaneously and on command. PSYCH: Normal mood, normal affect. SKIN: Warm, Dry, normal turgor, no rashes or lesions noted. Course - Re-evaluation Re-evalutation: 05/22/18 23:20 Patient presents that this could mean that he feels addicted to methamphetamine after using it once. The patient denies any current symptoms at the time of my evaluation, stating that he is homeless, sleeping on the street, asking if he can be referred to [facility] for rehab. The patient does not actually need rehab for methamphetamine, is unable to identify any symptoms that he experienced when he does not use methamphetamine. He tells me that he is not able to sleep but is soundly asleep when I walk in the room. His medical screening exam is otherwise unremarkable. He is cleared for discharge home. He will contact [facility] in the morning and try to get into [facility]. - Vital Signs Vital signs: Temp Pulse Resp BP Pulse Ox 98.4 F 91 18 140/89 H 98 05/22/18 23:30 05/22/18 23:30 05/22/18 23:30 05/22/18 23:30 05/22/18 23:30 Discharge - Discharge Clinical Impression: Methamphetamine abuse, Homelessness Condition: Good Disposition: HOME, SELF-CARE Additional Instructions: Please return if you have thoughts of wanting to hurt yourself, hurt others, or have any other symptoms that are concerning to you.
[2018-05-22 23:50] VITALS: BP 140/89
== END 2018-05-22 23:30 | disposition home or self-care (01) ==
LOC: ER 21:26
DX: F15.10 Other stimulant abuse, uncomplicated (principal); I10 Essential (primary) hypertension; F17.200 Nicotine dependence, unspecified, uncomplicated; Z59.0 Homelessness
CPT/HCPCS: 99283

== ENCOUNTER 2018-07-02 01:02 | Emergency (ER) | payer MEDICAID ==
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
[2018-07-02 07:17] VITALS: BP 106/71
== END 2018-07-02 07:17 | disposition home or self-care (01) ==
LOC: ER 01:02
DX: T17.308A Unspecified foreign body in larynx causing other injury, initial encounter (principal); M54.2 Cervicalgia; Y04.2XXA Assault by strike against or bumped into by another person, initial encounter; I10 Essential (primary) hypertension
CPT/HCPCS: 99284; 70490; 72125; L0120

== ENCOUNTER 2019-02-27 17:50 | Emergency (ER) | payer MEDICAID ==
--- NOTE | 2019-02-27 18:09 | ER Document Report ---
ED Medical Screen (RME) - General Chief Complaint: Abdominal Pain Stated Complaint: ABDOMINAL PAIN Time Seen by Provider: 02/27/19 17:59 Mode of Arrival: Ambulatory Information source: Patient Notes: Patient is a 48-year-old male presenting to the emergency department chief complaint of mid abdominal pain. Patient reports abdominal pain is been sharp stabbing and intermittent over the last 2 days. He denies any nausea, vomiting, diarrhea or fevers. Reports normal bowel movement earlier today. Patient does not appear to be in any acute distress. His abdomen is soft and nontender. Guru jasso does have extensive psych history. I have greeted and performed a rapid initial assessment of this patient. A comprehensive ED assessment and evaluation of the patient, analysis of test results and completion of the medical decision making process will be conducted by additional ED providers. I have specifically instructed the patient or family members with the patient to immediately return to any nursing staff should anything change in the patient's condition or with their chief complaint. This medical record was dictated with voice recognizing software. There may be grammatical, syntax errors that are unintended. TRAVEL OUTSIDE OF THE [place] IN LAST 30 DAYS: No - Related Data Allergies/Adverse Reactions: No Known Allergies Allergy (Verified 02/27/19 17:59) Past Medical History - Social History Frequency of alcohol use: Occasional Drug Abuse: Marijuana - Past Medical History Cardiac Medical History: Reports: Hx Hypertension Renal/ Medical History: Denies: Hx Peritoneal Dialysis Psychiatric Medical History: Reports: Hx Schizophrenia - Immunizations Immunizations up to date: Yes Hx Diphtheria, Pertussis, Tetanus Vaccination: Yes Physical Exam - Vital signs Vitals: Temp Pulse Resp BP Pulse Ox 97.5 F 88 16 138/70 H 100 02/27/19 17:57 02/27/19 17:57 02/27/19 17:57 02/27/19 17:57 02/27/19 17:57 Course - Vital Signs Vital signs: Temp Pulse Resp BP Pulse Ox 97.5 F 88 16 138/70 H 100 02/27/19 17:57 02/27/19 17:57 02/27/19 17:57 02/27/19 17:57 02/27/19 17:57
[2019-02-27 18:45] LABS: ABSOLUTE EOSINOPHILS # (AUTO) 0.1 10^3/uL (0.0-0.6); ABSOLUTE LYMPHOCYTES (AUTO) 1.5 10^3/uL (0.5-4.7); ABSOLUTE MONOCYTES (AUTO) 0.4 10^3/uL (0.1-1.4); ABSOLUTE NEUT (AUTO) 2.4 10^3/uL (1.7-8.2); BASOPHILS % (AUTO) 0.7 % (0-2); HEMATOCRIT 46.6 % (37.9-51.0); HEMOGLOBIN 15.9 g/dL (13.5-17.0); LYMPHOCYTES % (AUTO) 33.5 % (13-45); MEAN CORPUSCULAR HEMOGLOBIN 31.7 pg (27.0-33.4); MEAN CORPUSCULAR HGB CONC 34.1 g/dL (32.0-36.0); MEAN CORPUSCULAR VOLUME 93 fl (80-97); MONOCYTES % (AUTO) 8.6 % (3-13); PLATELET COUNT 275 10^3/uL (150-450); RED BLOOD COUNT 5.01 10^6/uL (4.35-5.55); RED CELL DISTRIBUTION WIDTH 13.6 % (11.5-14.0); SEGMENTED NEUTROPHILS % (AUTO) 54.2 % (42-78); TOTAL CELLS COUNTED % (AUTO) 100 %; WHITE BLOOD COUNT 4.5 10^3/uL (4.0-10.5)
--- NOTE | 2019-02-27 18:57 | RADIOLOGY REPORT (SQ) ---
EXAM DESCRIPTION: KUB/ABDOMEN (SINGLE VIEW) COMPLETED DATE/TIME: 02/27/2019 6:40 pm REASON FOR STUDY: intermittent abd pain COMPARISON: None. NUMBER OF VIEWS: One view. TECHNIQUE: Supine radiographic image of the abdomen acquired. LIMITATIONS: None. FINDINGS: BOWEL GAS PATTERN: Normal bowel gas pattern. No dilated loops. CALCIFICATIONS: No suspicious calcifications. SOFT TISSUES: No gross mass or suggestion of organomegaly. HARDWARE: None in the abdomen. BONES: No acute fracture. No worrisome bone lesions. OTHER: No other significant finding. IMPRESSION: NO RADIOGRAPHIC EVIDENCE FOR ACUTE ABDOMINAL DISEASE. TECHNICAL DOCUMENTATION: JOB ID: [id number] [employer]- All Rights Reserved Reading location - IP/workstation name: [email or web address]
[2019-02-27 19:11] LABS: ALBUMIN 4.1 g/dL (3.5-5.0); ALKALINE PHOSPHATASE 73 U/L (38-126); ANION GAP 6 (5-19); ASPARTATE AMINO TRANSFERASE 22 U/L (17-59); BILIRUBIN,DIRECT 0.1 mg/dL (0.0-0.4); BILIRUBIN,TOTAL 1.1 mg/dL (0.2-1.3); BLOOD UREA NITROGEN 10 mg/dL (7-20); CALCIUM 9.5 mg/dL (8.4-10.2); CARBON DIOXIDE 31 mmol/L (22-30); CHLORIDE 102 mmol/L (98-107); GLUCOSE 134 mg/dL (75-110); POTASSIUM 4.3 mmol/L (3.6-5.0); TOTAL PROTEIN 7.8 g/dL (6.3-8.2)
[2019-02-27 19:15] LABS: APPEARANCE,URINE CLEAR; BILIRUBIN,URINE NEGATIVE (NEGATIVE); COLOR,URINE YELLOW; GLUCOSE, URINE NEGATIVE (NEGATIVE); KETONES,URINE TRACE mg/dL (NEGATIVE); PROTEIN,URINE NEGATIVE (NEGATIVE); URINE SPECIFIC GRAVITY 1.028
--- NOTE | 2019-02-27 21:41 | ER Document Report ---
Entered by CALLI BRAUN SCRIBE 02/27/[id number] Acting as scribe for:NELSON CHERY IV, MD ED General - General Chief Complaint: Abdominal Pain Stated Complaint: ABDOMINAL PAIN Time Seen by Provider: 02/27/19 17:59 Mode of Arrival: Ambulatory Information source: Patient, [facility] Records Notes: Patient is a 48 year old male presenting to the emergency department complaining of abdominal pain. Patient states the pain began 2 days ago, he describes it is sharp and cramping. Patient states that he could not walk the whole day after it happened. He ate a snickers bar prior to entry, he denies nausea, vomiting, diarrhea, or having an abnormal bowel movement. TRAVEL OUTSIDE OF THE [place]S. IN LAST 30 DAYS: No - HPI Notes: This is a 48-year-old male who presents complaining of periumbilical crampy abdominal pain that has been present for the past 3 days. Patient denies nausea, vomiting, change in stools. Patient denies diarrhea. Patient is uncertain if he is coming to contact with other people with any gastrointestinal viral illness recently. Patient denies fever, chills patient states that his pain was at its worst approximately 3 days ago and as of today is minimal. Patient states he did have a bowel movement today without difficulty. Patient denies pencil thin stools. Patient denies nausea vomiting. Patient ate a Snickers bar while he was waiting to be seen by this provider. Patient denies abdominal pain currently.. Patient denies dysuria, flank pain. Differential diagnosis: Constipation, viral gastroenteritis, appendicitis, mesenteric adenitis, Medical decision making and plan: We will check lab work and KUB to look for occult signs of infection and possible need for further evaluation to rule out emergency medical condition. - Related Data Allergies/Adverse Reactions: No Known Allergies Allergy (Verified 02/27/19 17:59) Past Medical History - General Information source: Patient - Social History Smoking Status: Current Every Day Smoker Cigarette use (# per day): Yes Chew tobacco use (# tins/day): No Smoking Education Provided: No Frequency of alcohol use: Occasional Drug Abuse: Marijuana Family History: Reviewed & Not Pertinent Patient has suicidal ideation: No Patient has homicidal ideation: No - Past Medical History Cardiac Medical History: Reports: Hx Hypertension Psychiatric Medical History: Reports: Hx Schizophrenia - Immunizations Immunizations up to date: Yes Hx Diphtheria, Pertussis, Tetanus Vaccination: Yes Review of Systems - Review of Systems Constitutional: No symptoms reported EENT: No symptoms reported Cardiovascular: No symptoms reported Respiratory: No symptoms reported Gastrointestinal: See HPI, Abdominal pain, Last bowel movement - today. denies: Diarrhea, Nausea, Vomiting, Black stools Genitourinary: No symptoms reported Male Genitourinary: No symptoms reported Musculoskeletal: No symptoms reported Skin: No symptoms reported Hematologic/Lymphatic: No symptoms reported Neurological/Psychological: No symptoms reported -: Yes All other systems reviewed and negative Physical Exam - Vital signs Vitals: Temp Pulse Resp BP Pulse Ox 97.5 F 88 16 138/70 H 100 02/27/19 17:57 02/27/19 17:57 02/27/19 17:57 02/27/19 17:57 02/27/19 17:57 - Notes Notes: Physical Exam: General: Alert, appears well. HEENT: Normocephalic. Atraumatic. PERRL. Extraocular movements intact. Oropha rynx clear. Neck: Supple. Non-tender. Respiratory: No respiratory distress. Clear and equal breath sounds bilaterally. Cardiovascular: Regular rate and rhythm. Abdominal: Normal Inspection. Non-tender. No distension. Normal Bowel Sounds. Back: No gross abnormalities. Extremities: Moves all four extremities. Upper extremities: Normal inspection. Normal ROM. Lower extremities: Normal inspection. No edema. Normal ROM. Neurological: Normal cognition. AAOx4. Normal speech. Psychological: Normal affect. Normal Mood. Skin: Warm. Dry. Normal color. Course - Re-evaluation Re-evalutation: 02/27/19 21:39 Patient is in no acute distress at this time. Findings of ED MSE discussed with patient and patient's significant other. Diagnosis was explained to patient. Emergency signs and symptoms, reasons to return to the emergency department discussed with patient and patient's significant other. They expressed understanding of reasons to return to the ED. - Vital Signs Vital signs: Temp Pulse Resp BP Pulse Ox 97.4 F 83 16 117/70 100 02/27/19 21:05 02/27/19 21:05 02/27/19 21:05 02/27/19 21:05 02/27/19 21:05 - Laboratory Result Diagrams: 02/27/19 18:25 02/27/19 18:25 Laboratory results interpreted by me: 02/27/19 02/27/19 18:25 18:53 Carbon Dioxide 31 H Glucose 134 H Urine Ketones TRACE H Urine Blood SMALL H Urine Urobilinogen 4.0 H - Diagnostic Test Radiology reviewed: Reports reviewed Discharge - Discharge Clinical Impression: Abdominal cramps Condition: Good Disposition: HOME, SELF-CARE Instructions: Abdominal Pain ([facility]) Additional Instructions: Return to the Emergency Department without delay if any worse. HOME CARE INSTRUCTIONS & INFORMATION: Thank you for choosing us for your medical needs. We hope you're satisfied with the care you received. After you leave, you must properly care for your problem and, at the same time, observe its progress. Any condition can change. Some illnesses can change rapidly over hours or days. If your condition worsens, return to the Emergency Department or see your physician promptly. ABOUT YOUR X-RAYS AND EKG'S: If you had an EKG or X-rays taken, they have been read by the Emergency Physician. The X-rays and EKG's will also be read by a Radiologist or Presales Consultant within 24 hours. If discrepancies are noted, you will be notified by telephone. Please be certain the ED has a correct telephone number & address where you can be reached. Also, realize that some fractures or abnormalities do not show up on initial X-rays. If your symptoms continue, see your physician. ABOUT YOUR LABORATORY TEST: If you had laboratory tests, the results have been reviewed by the Emergency Physician. Some test results (for example cultures) may not be available for several days. You will be contacted if any test result shows you need additional treatment. Please be certain the ED has a correct telephone number and address where you can be reached. ABOUT YOUR MEDICATIONS: You will receive instructions on how to take your medicine on the prescription label you receive. Additional information may be provided by the Pharmacy. If you have questions afterwards, call the ED for clarification or further instructions. Some prescribed medications may cause dr owsinconner. Do not perform tasks such as driving a car or operating machinery without consulting your Pharmacist. If you feel you need a refill of pain medication, your condition will need re-evaluation. Please do not call for a refill of any medication. ABOUT YOUR SIGNATURE: Signature of this document acknowledges to followin. Understanding that you received emergency treatment and that you may be released before al medical problems are known or treated. Please be certain the ED has a correct phone number & address where you can be reached. 2. Acknowledgement that you will arrange for follow-up care as recommended. 3. Authorization for the Emergency Physician to provide information to your follow-up Physician in order to maximize your care. AT ANY TIME, IF YOUR SYMPTOMS CHANGE SIGNIFICANTLY OR WORSEN OR YOU DEVELOP NEW SYMPTOMS, RETURN TO THE EMERGENCY DEPARTMENT IMMEDIATELY FOR RE-EVALUATION. OUR GOAL IS TO PROVIDE EXCELLENT MEDICAL CARE! WE HOPE THAT WE HAVE MET YOUR EXPECTATIONS DURING YOUR EMERGENCY DEPARTMENT VISIT AND THAT YOU FEEL YOU HAVE RECEIVED EXCELLENT CARE! Referrals: MARTIN LIEBERMAN MD [HONORARY] - 03/01/19 I personally performed the services described in the documentation, reviewed and edited the documentation which was dictated to the scribe in my presence, and it accurately records my words and actions.
[2019-02-27 21:52] VITALS: BP 120/72
== END 2019-02-27 21:50 | disposition home or self-care (01) ==
LOC: ER 17:50
DX: R10.33 Periumbilical pain (principal); F17.210 Nicotine dependence, cigarettes, uncomplicated; I10 Essential (primary) hypertension
CPT/HCPCS: 36415; 74018; 80053; 81001; 83690; 85025; 99284

== ENCOUNTER 2019-04-14 00:28 | Emergency (ER) | payer MEDICAID ==
[2019-04-14 00:55] VITALS: BP 119/70
[2019-04-14 01:14] LABS: ABSOLUTE LYMPHOCYTES (AUTO) 1.7 10^3/uL (0.5-4.7); ABSOLUTE MONOCYTES (AUTO) 0.5 10^3/uL (0.1-1.4); ABSOLUTE NEUT (AUTO) 2.7 10^3/uL (1.7-8.2); EOSINOPHILS % (AUTO) 0.9 % (0-6); HEMATOCRIT 43.8 % (37.9-51.0); HEMOGLOBIN 15.1 g/dL (13.5-17.0); LYMPHOCYTES % (AUTO) 33.8 % (13-45); MEAN CORPUSCULAR HEMOGLOBIN 31.6 pg (27.0-33.4); MEAN CORPUSCULAR HGB CONC 34.5 g/dL (32.0-36.0); MEAN CORPUSCULAR VOLUME 92 fl (80-97); MONOCYTES % (AUTO) 10.1 % (3-13); PLATELET COUNT 238 10^3/uL (150-450); RED BLOOD COUNT 4.78 10^6/uL (4.35-5.55); RED CELL DISTRIBUTION WIDTH 13.5 % (11.5-14.0); SEGMENTED NEUTROPHILS % (AUTO) 54.2 % (42-78); TOTAL CELLS COUNTED % (AUTO) 100 %
[2019-04-14 01:21] LABS: ALBUMIN 4.3 g/dL (3.5-5.0); ALKALINE PHOSPHATASE 73 U/L (38-126); ANION GAP 12 (5-19); ASPARTATE AMINO TRANSFERASE 23 U/L (17-59); BILIRUBIN,DIRECT 0.3 mg/dL (0.0-0.4); BILIRUBIN,TOTAL 1.1 mg/dL (0.2-1.3); BLOOD UREA NITROGEN 15 mg/dL (7-20); CALCIUM 9.1 mg/dL (8.4-10.2); CARBON DIOXIDE 23 mmol/L (22-30); CHLORIDE 107 mmol/L (98-107); GLUCOSE 170 mg/dL (75-110); TOTAL PROTEIN 7.9 g/dL (6.3-8.2)
[2019-04-14 01:37] LABS: APPEARANCE,URINE CLEAR; BILIRUBIN,URINE NEGATIVE (NEGATIVE); CALCIUM OXALATE CRYSTALS,URINE FEW /HPF; COLOR,URINE YELLOW; GLUCOSE, URINE NEGATIVE (NEGATIVE); KETONES,URINE TRACE mg/dL (NEGATIVE); LEUKOCYTE ESTERASE,URINE NEGATIVE (NEGATIVE); NITRITE,URINE NEGATIVE (NEGATIVE); PROTEIN,URINE 30 mg/dL (NEGATIVE); URINE SPECIFIC GRAVITY 1.032
== END 2019-04-14 03:03 | disposition left against medical advice (07) ==
LOC: ER 00:28
DX: Z53.21 Procedure and treatment not carried out due to patient leaving prior to being seen by health care provider (principal)
CPT/HCPCS: 36415; 80053; 81001; 83690; 85025

== ENCOUNTER 2019-08-30 02:00 | Emergency (ER) | payer MEDICAID ==
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
[2019-08-30 04:33] VITALS: BP 126/83
== END 2019-08-30 04:38 | disposition home or self-care (01) ==
LOC: ER 02:00
DX: S61.210A Laceration without foreign body of right index finger without damage to nail, initial encounter (principal); X99.1XXA Assault by knife, initial encounter; F17.200 Nicotine dependence, unspecified, uncomplicated; F12.10 Cannabis abuse, uncomplicated; I10 Essential (primary) hypertension
CPT/HCPCS: 99283

== ENCOUNTER 2019-09-01 04:37 | Emergency (ER) | payer MEDICAID ==
[2019-09-01] MEDS ORDERED: IBUPROFEN 600 MG TABLET PO ONE (04:52)
[2019-09-01] MEDS ORDERED: BENZTROPINE MESYLATE 1 MG TABLET PO ONE (07:06)
[2019-09-01] MEDS ORDERED: QUETIAPINE FUMARATE 25 MG TABLET PO ONE (07:07)
[2019-09-01] MEDS ORDERED: RISPERIDONE 1 MG TABLET PO ONE (07:07)
[2019-09-01 07:42] LABS: ABSOLUTE EOSINOPHILS # (AUTO) 0.2 10^3/uL (0.0-0.6); ABSOLUTE MONOCYTES (AUTO) 0.9 10^3/uL (0.1-1.4); ABSOLUTE NEUT (AUTO) 3.4 10^3/uL (1.7-8.2); BASOPHILS % (AUTO) 0.7 % (0-2); EOSINOPHILS % (AUTO) 2.4 % (0-6); HEMATOCRIT 40.1 % (37.9-51.0); HEMOGLOBIN 14.1 g/dL (13.5-17.0); LYMPHOCYTES % (AUTO) 30.8 % (13-45); MEAN CORPUSCULAR HGB CONC 35.1 g/dL (32.0-36.0); MEAN CORPUSCULAR VOLUME 91 fl (80-97); MONOCYTES % (AUTO) 13.8 % (3-13); PLATELET COUNT 169 10^3/uL (150-450); RED CELL DISTRIBUTION WIDTH 13.4 % (11.5-14.0); SEGMENTED NEUTROPHILS % (AUTO) 52.3 % (42-78); TOTAL CELLS COUNTED % (AUTO) 100 %; WHITE BLOOD COUNT 6.4 10^3/uL (4.0-10.5)
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
[2019-09-01 08:00] LABS: ALBUMIN 3.8 g/dL (3.5-5.0); ALKALINE PHOSPHATASE 83 U/L (38-126); ASPARTATE AMINO TRANSFERASE 32 U/L (17-59); BILIRUBIN,TOTAL 1.2 mg/dL (0.2-1.3); BLOOD UREA NITROGEN 13 mg/dL (7-20); CALCIUM 9.2 mg/dL (8.4-10.2); CARBON DIOXIDE 30 mmol/L (22-30); CHLORIDE 104 mmol/L (98-107); GLUCOSE 84 mg/dL (75-110); POTASSIUM 3.8 mmol/L (3.6-5.0); TOTAL PROTEIN 7.3 g/dL (6.3-8.2)
[2019-09-01 08:03] LABS: ACETAMINOPHEN < 10 ug/mL (10-30); ALCOHOL < 10 mg/dL (NONE DETECTED)
[2019-09-01 08:04] LABS: SALICYLATE < 1.0 mg/dL (2.0-20.0)
[2019-09-01 08:05] LABS: ANION GAP 5 (5-19)
[2019-09-01 08:10] LABS: APPEARANCE,URINE CLEAR; BILIRUBIN,URINE NEGATIVE (NEGATIVE); COLOR,URINE YELLOW; GLUCOSE, URINE NEGATIVE (NEGATIVE); KETONES,URINE TRACE mg/dL (NEGATIVE); LEUKOCYTE ESTERASE,URINE NEGATIVE (NEGATIVE); NITRITE,URINE NEGATIVE (NEGATIVE); PROTEIN,URINE 30 mg/dL (NEGATIVE); URINE SPECIFIC GRAVITY 1.034
[2019-09-01 08:22] LABS: URINE AMPHETAMINES SCREEN NEGATIVE; URINE BARBITURATES SCREEN NEGATIVE; URINE BENZODIAZEPINES SCREEN NEGATIVE; URINE METHADONE SCREEN NEGATIVE; URINE PHENCYCLIDINE SCREEN NEGATIVE
[2019-09-01 08:23] LABS: URINE COCAINE SCREEN UNCONFIRMED POSITIVE; URINE MARIJUANA (THC) SCREEN UNCONFIRMED POSITIVE
--- NOTE | 2019-09-01 14:51 | PSYCHOLOGICAL NOTE ---
Psych Note - Psych Note Date seen by psych provider: 09/01/19 Time seen by psych provider: 11:20 Psych Note: Reason for Consult: Odd Behaviour Patient is sleeping upon clinician entering room. Patient minimally engages with clinician to confirm his name, lives in [place] and came in to [facility] via "emergency" ie EMS. Patient refuses to continue to engage with eye closed and will not speak. Chart review: Patient has been evaluated by the behavioral health team previously on 01/19/2017, 03/16/2018, 03/19/2018, 03/27/2018, 05/11/2018, 05/12/2018. [facility]/2017 [facility] THE [facility] visit. [facility] per patient's report for cocaine. Patient reports history of schizophrenia and receives SSI. Patient presented in 03/16/2018 wanting assistance in obtaining food stamps. He has a history of homelessness and nonc ompliance with psychiatric treatment (ie medication management). Patient was sent inpatient treatment once on 03/19/2018 to [facility] for psychosis. Impression/Plan: At this time, the patient refuses to engage in evaluation. There is currently on reports for concern of psychosis or suicidal or homicidal ideation. While the patient was acting odd, it did not put himself or others in danger. Toxicology screening indicates probable Cocaine and THC. He has a history of both substance abuse and homelessness. The economic and mental health/ substance abuse provider resource lists were provided to the patient and he is encouraged to engage with [facility] (his previous outpatient mental health provider). Reevaluation Patient reports that he is feeling much better now he received medications. He discloses that he is unable to pay for his medications however this is due to not having his Medicaid number. Patient asked for assistance in obtaining his Medicaid number so he can pick out hand his medications. Patient declines Haldol Decanoate shot stating that he would prefer to get prescriptions for the medications he received today (Seroquel, risperidone, Cogentin). Patient co ntinued to report that he will follow-up with [facility] services. Patient confirms he is homeless and requests information on shelters down in [place]. Clinician explained unfortunately we are unable to provide transportation out of [facility]. Patient disclosed no concerns in regards to not being able to have transportation stating "I can find my own way if you are able to give me the information where they are at." Patient is semi-alert and orientated to person, place, time and circumstance. Clinician notes patient continually needs to be awoken to engage. Mood is calm with congruent affect. Patient denies suicidal and homicidal ideations. Delusions are absent behaviors congruent with an intact reality based presentation i.e. organized and linear thought process. Eye contact is poor as patient either attempts to keep his head covered with a blanket or keeps his eyes closed. Conversational speech is overall within normal rate, tone and prosody. Intellectual abilities appear to be within the average range. Attention and concentration is fair. Insight, judgment, impulse control is fair. Impression\\plan: Patient is cleared from acute psychiatric services. Patient engages with clinician and develops plan of care i.e. requests assistance in obtaining prescriptions through Medicaid i.e. Medicaid number, and alf options in [place]. Clinician notes patient is unable to stay in [facility] alf due to criminal background. This information was provided in addition to resource list of providers and mobile crisis contact information. Patient is highly encouraged to follow-[facility] and continue outpatient mental health services. Dr. Camarena was consulted to care management of this patient physicians in agreement with recommendations and disposition.
[2019-09-01 15:34] VITALS: BP 132/78
--- NOTE | 2019-09-01 23:37 | EKG REPORT ---
SEVERITY:- OTHERWISE NORMAL ECG - SINUS RHYTHM BORDERLINE RIGHT AXIS DEVIATION : Confirmed by: Rancho Presley 01-Sep-2019 23:36:24
== END 2019-09-01 15:34 | disposition home or self-care (01) ==
LOC: ER 04:37
DX: Z59.0 Homelessness (principal); Z91.14 Patient's other noncompliance with medication regimen; R51 Headache; F20.9 Schizophrenia, unspecified; F17.210 Nicotine dependence, cigarettes, uncomplicated; I10 Essential (primary) hypertension
CPT/HCPCS: 93005; 99285; 36415; 80307 ×4; 85025; 80053; 81001; 93010; J3490 ×4

== ENCOUNTER 2019-09-05 01:44 | Emergency (ER) | payer MEDICAID ==
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
[2019-09-05 05:18] VITALS: BP 164/72
== END 2019-09-05 05:18 | disposition home or self-care (01) ==
LOC: ER 01:44
DX: M25.562 Pain in left knee (principal); M79.605 Pain in left leg; M79.89 Other specified soft tissue disorders; F17.200 Nicotine dependence, unspecified, uncomplicated; I10 Essential (primary) hypertension
CPT/HCPCS: 99283